=== PATIENT | female | born 1950 | race Caucasian/White ===

== ENCOUNTER → 2016-05-15 | Outpatient (CLI) | payer OTHER ==
[2016-02-11 02:12] VITALS: BP 143/89
[~2016-05-15] MED LIST: ALPR1TAB2 PO; ASPI81TA9 PO; ATOR10TA PO; CETI10TA16 PO; CIPR500T94 PO; CLIN-44 PO; CYCL10TA2 PO; DEXL30CA PO; DIAZ2TAB PO; DICL75TA PO; FURO40TA4 PO; HYDR-2666 PO; HYDR-971 PO; INSU100I13 SQ; INSU100V8 SQ; LOSA25TA4 PO; NITR0.4T SL; OXYC1TAB8 PO; OXYC1TAB9 PO; OXYC40TA21 PO; POTA20TA12 PO; PREG75CA PO; TIZA4TAB PO; TRIA5PAS4 DT; VENTOLIN HFA18 GM IH
--- NOTE | 2016-05-16 10:23 | RAD ---
DATE: 05/15/2016 EXAM: DIGITAL SCREEN BILAT W/CAD HISTORY: Routine screening COMPARISON: 05/16/2015 This study was interpreted with the benefit of Computerized Aided Detection (CAD). FINDINGS: There are scattered fibroglandular densities in the breasts. No new or enlarging breast densities are seen. Minimal benign type calcification is noted. No suspicious microcalcifications have developed. IMPRESSION: Stable mammograms without evidence of malignancy. BI-RADS CATEGORY: 2 BENIGN FINDING(S) RECOMMENDED FOLLOW-UP: 12M 12 MONTH FOLLOW-UP PQRS compliance statement: Patient information was entered into a reminder system with a target due date for the next mammogram. Mammography is a sensitive method for finding small breast cancers, but it does not detect them all and is not a substitute for careful clinical examination. A negative mammogram does not negate a clinically suspicious finding and should not result in delay in biopsying a clinically suspicious abnormality. "Our facility is accredited by the [employer] Mammography Program."
== END | disposition home or self-care (01) ==
LOC: MAMMO 14:40
PROVIDERS: ATTEND Family Medicine
DX: Z12.31 Encounter for screening mammogram for malignant neoplasm of breast (principal)
CPT/HCPCS: G0202; 77067

== ENCOUNTER → 2016-10-11 | Outpatient (CLI) | payer OTHER ==
[2016-02-11 02:12] VITALS: BP 143/89
[~2016-10-11] MED LIST changes: +ASPI-612 PO; -ASPI81TA9 PO; -CLIN-44 PO; +CLIN150C14 PO; -HYDR-2666 PO; +HYDR-2758 PO; -TRIA5PAS4 DT; +TRIA5PAS5 DT
--- NOTE | 2016-10-11 15:31 | RAD ---
Left elbow, 3 views, 10/11/2016: History: Elbow pain There is moderate spurring at the elbow joint. There are tiny periarticular calcifications. No fracture or dislocation is identified. There is no radiographic evidence of a significant joint effusion. IMPRESSION: 1. Degenerative change. 2. No acute bony abnormality is detected.
== END | disposition home or self-care (01) ==
LOC: RAD 13:50
PROVIDERS: ATTEND Family Medicine
DX: M19.022 Primary osteoarthritis, left elbow (principal)
CPT/HCPCS: 73080

== ENCOUNTER 2017-01-13 18:31 | Emergency (ER) | payer OTHER ==
[~2017-01-13] VITALS: Ht 154.9 cm; Wt 79.4 kg
[2017-01-13 18:55] VITALS: BP 127/60
[2017-01-13] MEDS ORDERED: DIAZ5TAB PO (19:34)
[2017-01-13] MEDS ORDERED: DICL50TA4 PO (19:34)
[2017-01-13] MEDS ORDERED: GABA-586 PO (19:34)
--- NOTE | 2017-01-13 19:34 | PHYS DOC ---
Past Medical History Past Medical History: Asthma, Diabetes-Type II, Diverticulitis, Fibromyalgia, High Cholesterol, Hypertension, [place], Other Additional Past Medical Histor: lower ext edema, chronic back pain Past Surgical History: Appendectomy, Knee Replacement, Tubal ligation Additional Past Surgical Histo: HERNIA, COLON RESECTION X 2; L knee Alcohol Use: Sober Drug Use: None Adult General Chief Complaint Chief Complaint: HAND PROBLEM HPI HPI Patient is a 66 year old female with history of hypertension, high cholesterol , fibromyalgia, who presents today complaining of 7 out of 10 throbbing left hand pain that has been going on since yesterday. Patient states she has history of carpal tunnel. She is also complaining of some numbness and tingling to the left fingers. Patient states she follows up with an orthopedic doctor for a couple trauma. Patient denies any injuries. She states she is currently trying to take cyclobenzaprine with no relief. Review of Systems Review of Systems Constitutional: Denies fever or chills [] Musculoskeletal: Left hand pain with numbness and tingling to the left fingers. Integument: Denies rash or skin lesions [] Neurologic: Denies headache, focal weakness or sensory changes [] Current Medications Current Medications Current Medications Medications (Trade) Dose Ordered Sig/Dee Start Time Stop Time Status Last Admin Dose Admin Diazepam (Valium) 5 mg 1X ONCE 01/13/17 19:45 01/13/17 19:46 01/13/17 19:27 5 MG Gabapentin (Neurontin) 300 mg 1X ONCE 01/13/17 19:45 01/13/17 19:46 01/13/17 19:27 300 MG Naproxen (Naprosyn) 500 mg 1X ONCE 01/13/17 19:45 01/13/17 19:46 01/13/17 19:27 500 MG Allergies Allergies Allergies Coded Allergies Type Severity Reaction Last Updated Verified Penicillins Allergy Intermediate Rash 11/18/13 Yes adhesive Allergy Intermediate RASH- TAPE 11/18/13 Yes doxycycline Allergy Intermediate rash 01/21/15 Yes Physical Exam Physical Exam Constitutional: Well developed, well nourished, no acute distress, non-toxic appearance. [] Skin: Warm, dry, no erythema, no rash. [] Back: No tenderness, no CVA tenderness. [] Extremities: Left hand with no obvious deformity. No tenderness of the left hand. Positive Tinel and Phalen sign. Full range of motion to the left hand and fingers. Adequate radial medial and was not sensation to the left hand. +2 left radial pulse. Cap refill less than 2 seconds the left upper extremity. Neurologic: Alert and oriented X 3, normal motor function, normal sensory function, no focal deficits noted. [] Psychologic: Affect normal, judgement normal, mood normal. [] Current Patient Data Vital Signs Vital Signs Date Time Temp Pulse Resp B/P (MAP) Pulse Ox O2 Delivery O2 Flow Rate FiO2 01/13/17 18:55 98.1 74 20 96 Room Air 98.1 EKG EKG [] Radiology/Procedures Radiology/Procedures [] Course & Med Decision Making Course & Med Decision Making Pertinent Labs and Imaging studies reviewed. (See chart for details) Patient is in the ED with pain consistent of chronic carpel tunnel syndrome. She was discharged with diclofenac, Valium and gabapentin. Follow-up with her orthopedic doctor in the course of this week. Dragon Disclaimer Dragon Disclaimer This electronic medical record was generated, in whole or in part, using a voice recognition dictation system. Departure Departure Impression: Primary Impression: Carpal tunnel syndrome of left wrist Disposition: HOME, SELF-CARE Condition: STABLE Referrals: NO PCP (PCP) Follow-up with your orthopedic doctor in the course of this week. Patient Instructions: Carpal Tunnel Syndrome, [id number] Additional Instructions: You were seen in the ED with pain consistent with carpal tunnel syndrome. Continue following up with the orthopedic doctor. Ice and elevate the extremity. Scripts Diclofenac Sodium (DICLOFENAC SODIUM) 50 Mg Tablet.dr 1 TAB PO BID, #20 TAB 0 Refills Prov: SHANA PINEDA APRN 01/13/17 Diazepam (VALIUM) 5 Mg Tablet 5 MG PO TID, #15 TAB Prov: SHANA PINEDA APRN 01/13/17 Gabapentin (GABAPENTIN) 300 Mg Capsule 300 MG PO TID, #30 CAP Prov: SHANA PINEDA APRN 01/13/17 SHANA PINEDA APRN Jan 13, 2017 19:34
[2017-01-13] MEDS ORDERED: diazePAM 5 MG TABLET PO ONE (19:45)
[2017-01-13] MEDS ORDERED: NAPROXEN 500 MG TABLET PO ONE (19:45)
[2017-01-13] MEDS ORDERED: GABAPENTIN 300 MG CAPSULE. PO ONE (19:45)
== END 2017-01-13 19:38 | disposition home or self-care (01) ==
LOC: ER 18:31
DX: G56.02 Carpal tunnel syndrome, left upper limb (principal); E78.00 Pure hypercholesterolemia, unspecified; E11.9 Type 2 diabetes mellitus without complications; G89.29 Other chronic pain; I10 Essential (primary) hypertension; J45.909 Unspecified asthma, uncomplicated; M79.7 Fibromyalgia; I25.2 Old myocardial infarction; Z88.0 Allergy status to penicillin; Z88.1 Allergy status to other antibiotic agents; Z88.8 Allergy status to other drugs, medicaments and biological substances
CPT/HCPCS: 99284

== ENCOUNTER → 2017-05-16 | Outpatient (CLI) | payer OTHER | END | disposition home or self-care (01) | LOC: MAMMO 14:37 | DX: Z12.31 Encounter for screening mammogram for malignant neoplasm of breast (principal) | CPT/HCPCS: 77067 ==

== ENCOUNTER 2018-02-22 23:02 | Emergency (ER) | payer MEDICARE, OTHER ==
[~2018-02-22] VITALS: Ht 152.4 cm; Wt 73.5 kg
[~2018-02-22 23:02] MED LIST changes: +DIAZ5TAB PO; +DICL50TA4 PO; +GABA-586 PO; -HYDR-2758 PO; +HYDR-2761 PO; +HYDR-3164 PO; -HYDR-971 PO; -LOSA25TA4 PO; +LOSA25TA5 PO; +OXYC-411 PO; -OXYC1TAB9 PO
[2018-02-23 00:36] LABS: BASO % 0 % (0-3); EOS # 0.1 x10^3/uL (0.0-0.7); EOS % 1 % (0-3); HEMATOCRIT 41.4 % (36.0-47.0); HEMOGLOBIN 14.1 g/dL (12.0-15.5); LYMPH # 3.5 x10^3/uL (1.0-4.8); LYMPH % 42 % (24-48); MEAN CORPUSCULAR HEMOGLOBIN 30 pg (25-35); MEAN CORPUSCULAR HGB CONC 34 g/dL (31-37); MEAN CORPUSCULAR VOLUME 87 fL (79-100); MONO # 0.7 x10^3/uL (0.0-1.1); MONO % 8 % (0-9); NEUT # 4.1 x10^3uL (1.8-7.7); NEUT % 49 % (31-73); PLATELET COUNT 267 x10^3/uL (140-400); RED BLOOD COUNT 4.76 x10^6/uL (3.50-5.40); RED CELL DISTRIBUTION WIDTH 14.5 % (11.5-14.5); WHITE BLOOD COUNT 8.3 x10^3/uL (4.0-11.0)
[2018-02-23 00:44] LABS: PROTHROMBIN TIME PATIENT 12.9 SEC (11.7-14.0)
[2018-02-23 00:49] LABS: CALCIUM 9.3 mg/dL (8.5-10.1); CREATININE 0.8 mg/dL (0.6-1.0); GFR 71.8; POTASSIUM 3.6 mmol/L (3.5-5.1)
[2018-02-23 00:57] LABS: TOTAL BILIRUBIN 0.4 mg/dL (0.2-1.0); TOTAL PROTEIN 7.9 g/dL (6.4-8.2)
[2018-02-23] MEDS ORDERED: ACETAMINOPHEN 500 MG TABLET PO ONE (01:00)
--- NOTE | 2018-02-23 01:06 | RAD ---
Right lower extremity venous duplex study 02/23/2018 Clinical History: Right leg pain. Lump posterior distal right thigh. Technique: Using a combination of real time ultrasound imaging and color-flow and pulse Doppler imaging techniques along with graded compression and augmentation, duplex evaluation of the deep venous system of the right lower extremity was performed. Multiple images were obtained. Findings: There is no sonographic evidence of deep venous thrombosis involving the visualized deep venous structures of right lower extremity. No abnormal soft tissue mass or fluid collection is seen in the area where the patient feels a palpable lump. A 3.4 cm popliteal cyst is seen posterior to the right knee. Impression: There is no sonographic evidence of deep venous thrombosis involving the visualized deep venous structures of the right lower extremity. Electronically signed by: Chicho Han MD (02/23/2018 1:03 AM) [facility]
--- NOTE | 2018-02-23 01:45 | PHYS DOC ---
Past Medical History Past Medical History: Asthma, Diabetes-Type II, Diverticulitis, Fibromyalgia, High Cholesterol, Hypertension, [place], Other Additional Past Medical Histor: lower ext edema, chronic back pain Past Surgical History: Appendectomy, Hysterectomy, Knee Replacement, Tonsillectomy, Tubal ligation Additional Past Surgical Histo: HERNIA, COLON RESECTION X 2; L knee Alcohol Use: Sober Drug Use: None Adult General Chief Complaint Chief Complaint: LOWER EXT PAIN HPI HPI Patient is a 67 year old f p/w right leg pain x one to two weeks. located in the right posterior popoliteal area. she had hysterectomy in august was on preventive lovenox at that time but no previous hx of dvt. she is worreid about dvt. does have chronic right knee pian as well. due for knee replacement once her hba1c gets better. Review of Systems Review of Systems Constitutional: Denies fever or chills [] Eyes: Denies change in visual acuity, redness, or eye pain [] HENT: Denies nasal congestion or sore throat [] Respiratory: Denies shortness of breath [] Cardiovascular: No additional information not addressed in HPI [] neg for cp Musculoskeletal:see hpi Neurologic: Denies headache, focal weakness or sensory changes [] Endocrine: Denies polyuria or polydipsia [] All other systems were reviewed and found to be within normal limits, except as documented in this note. Current Medications Current Medications Current Medications Medications (Trade) Dose Ordered Sig/Dee Start Time Stop Time Status Last Admin Dose Admin Acetaminophen (Tylenol) 1,000 mg 1X ONCE 02/23/18 01:00 02/23/18 01:01 DC 02/23/18 00:33 1,000 MG Allergies Allergies Allergies Coded Allergies Type Severity Reaction Last Updated Verified Penicillins Allergy Intermediate Rash 11/18/13 Yes adhesive Allergy Intermediate RASH- TAPE 11/18/13 Yes doxycycline Allergy Intermediate rash 01/21/15 Yes Physical Exam Physical Exam Constitutional: Well developed, well nourished, no acute distress, non-toxic appearance. [] HENT: Normocephalic, atraumatic, bilateral external ears normal, oropharynx moist, no oral exudates, nose normal. [] Eyes: PERRLA, EOMI, conjunctiva normal, no discharge. [] Neck: Normal range of motion, no tenderness, supple, no stridor. [] normal respiratory effort no increased work of breathing. Abdomen: Bowel sounds normal, soft, no tenderness, no masses, no pulsatile masses. [] Skin: Warm, dry, no erythema, no rash. [] Back: No tenderness, no CVA tenderness. [] Extremities: there is popliteal tenderness noted, mild cyst noted. no palpable cords no calf ttp. Neurologic: Alert and oriented X 3, normal motor function, normal sensory function, no focal deficits noted. [] Psychologic: Affect normal, judgement normal, mood normal. [] Current Patient Data Vital Signs Vital Signs Date Time Temp Pulse Resp B/P (MAP) Pulse Ox O2 Delivery O2 Flow Rate FiO2 02/22/18 23:10 97.9 63 18 149/67 (94) 94 Room Air 97.9 Lab Values Laboratory Tests Test 02/22/18 23:35 White Blood Count 8.3 x10^3/uL (4.0-11.0) Red Blood Count 4.76 x10^6/uL (3.50-5.40) Hemoglobin 14.1 g/dL (12.0-15.5) Hematocrit 41.4 % (36.0-47.0) Mean Corpuscular Volume 87 fL (79-100) Mean Corpuscular Hemoglobin 30 pg (25-35) Mean Corpuscular Hemoglobin Concent 34 g/dL (31-37) Red Cell Distribution Width 14.5 % (11.5-14.5) Platelet Count 267 x10^3/uL (140-400) Neutrophils (%) (Auto) 49 % (31-73) Lymphocytes (%) (Auto) 42 % (24-48) Monocytes (%) (Auto) 8 % (0-9) Eosinophils (%) (Auto) 1 % (0-3) Basophils (%) (Auto) 0 % (0-3) Neutrophils # (Auto) 4.1 x10^3uL (1.8-7.7) Lymphocytes # (Auto) 3.5 x10^3/uL (1.0-4.8) Monocytes # (Auto) 0.7 x10^3/uL (0.0-1.1) Eosinophils # (Auto) 0.1 x10^3/uL (0.0-0.7) Basophils # (Auto) 0.0 x10^3/uL (0.0-0.2) Prothrombin Time 12.9 SEC (11.7-14.0) Prothrombin Time INR 1.0 (0.8-1.1) Sodium Level 137 mmol/L (136-145) Potassium Level 3.6 mmol/L (3.5-5.1) Chloride Level 99 mmol/L (98-107) Carbon Dioxide Level 27 mmol/L (21-32) Anion Gap 11 (6-14) Blood Urea Nitrogen 8 mg/dL (7-20) Creatinine 0.8 mg/dL (0.6-1.0) Estimated GFR (Cockcroft-Gault) 71.8 BUN/Creatinine Ratio 10 (6-20) Glucose Level 289 mg/dL (70-99) H Calcium Level 9.3 mg/dL (8.5-10.1) Total Bilirubin 0.4 mg/dL (0.2-1.0) Aspartate Amino Transferase (AST) 18 U/L (15-37) Alanine Aminotransferase (ALT) 26 U/L (14-59) Alkaline Phosphatase 112 U/L (46-116) Total Protein 7.9 g/dL (6.4-8.2) Albumin 4.0 g/dL (3.4-5.0) Albumin/Globulin Ratio 1.0 (1.0-1.7) Laboratory Tests 02/22/18 23:35 Laboratory Tests 02/22/18 23:35 EKG EKG [] Radiology/Procedures Radiology/Procedures [] Impressions: Technique: Using a combination of real time ultrasound imaging and color-flow and pulse Doppler imaging techniques along with graded compression and augmentation, duplex evaluation of the deep venous system of the right lower extremity was performed. Multiple images were obtained. Findings: There is no sonographic evidence of deep venous thrombosis involving the visualized deep venous structures of right lower extremity. No abnormal soft tissue mass or fluid collection is seen in the area where the patient feels a palpable lump. A 3.4 cm popliteal cyst is seen posterior to the right knee. Impression: There is no sonographic evidence of deep venous thrombosis involving the visualized deep venous structures of the right lower extremity. Electronically signed by: Chicho Galloway MD (02/23/2018 1:03 AM) [facility] DICTATED and SIGNED BY: CHICHO GALLOWAY MD DATE: 02/23/18 0101a Course & Med Decision Making Course & Med Decision Making Pertinent Labs and Imaging studies reviewed. (See chart for details) []bp check in one week nsaids for popliteal cyst no evidence of dvt. f/u pmd Dragon Disclaimer Dragon Disclaimer This electronic medical record was generated, in whole or in part, using a voice recognition dictation system. Departure Departure Impression: Primary Impression: Elevated blood pressure reading Additional Impression: Popliteal cyst Disposition: HOME, SELF-CARE Condition: STABLE Patient Instructions: Osteoarthritis Additional Instructions: get bp checked in one week. Problem Qualifiers LESIA REICH MD Feb 23, 2018 01:45
[2018-02-23 01:46] VITALS: BP 133/60
== END 2018-02-23 01:54 | disposition home or self-care (01) ==
LOC: ER 23:02
DX: M71.21 Synovial cyst of popliteal space [Baker], right knee (principal); I10 Essential (primary) hypertension; J45.909 Unspecified asthma, uncomplicated; E11.9 Type 2 diabetes mellitus without complications; E78.00 Pure hypercholesterolemia, unspecified; I25.2 Old myocardial infarction; Z90.49 Acquired absence of other specified parts of digestive tract; Z90.89 Acquired absence of other organs; Z90.710 Acquired absence of both cervix and uterus; Z30.2 Encounter for sterilization; Z96.659 Presence of unspecified artificial knee joint; Z88.0 Allergy status to penicillin; Z88.8 Allergy status to other drugs, medicaments and biological substances
CPT/HCPCS: 36415; 80053; 85025; 85610; 93971; 99284-25

== ENCOUNTER → 2018-05-19 | Outpatient (CLI) | payer MEDICARE, OTHER ==
[~2018-05-19] MED LIST changes: -GABA-586 PO; +GABA300C18 PO; -LOSA25TA5 PO; +LOSA25TA54 PO
--- NOTE | 2018-05-19 15:41 | RAD ---
DATE: 05/19/2018 EXAM: MAMMO EBTSY SCREENING BILATERAL HISTORY: Routine screening COMPARISON: 05/16/2017 This study was interpreted with the benefit of Computerized Aided Detection (CAD). Breast Density: FATTY The breast parenchyma is primarily fatty replaced. Breast parenchyma level density A. FINDINGS: 2-D and 3-D tomosynthesis imaging was performed in CC and MLO projections. No new or enlarging breast densities are seen. No suspicious microcalcifications are evident. IMPRESSION: Stable mammograms without evidence of malignancy. BI-RADS CATEGORY: 1 NEGATIVE RECOMMENDED FOLLOW-UP: 12M 12 MONTH FOLLOW-UP PQRS compliance statement: Patient information was entered into a reminder system with a target due date for the next mammogram. Mammography is a sensitive method for finding small breast cancers, but it does not detect them all and is not a substitute for careful clinical examination. A negative mammogram does not negate a clinically suspicious finding and should not result in delay in biopsying a clinically suspicious abnormality. "Our facility is accredited by the [employer] Mammography Program."
== END | disposition home or self-care (01) ==
LOC: MAMMO 10:38
PROVIDERS: ATTEND Family Medicine
DX: Z12.31 Encounter for screening mammogram for malignant neoplasm of breast (principal); Z85.3 Personal history of malignant neoplasm of breast
CPT/HCPCS: 77063; 77067

== ENCOUNTER 2018-06-25 18:24 | Emergency (ER) | payer MEDICARE, OTHER ==
[~2018-06-25] VITALS: Ht 152.4 cm; Wt 75.3 kg
[2018-06-25 19:37] LABS: BILIRUBIN,URINE NEGATIVE (NEG); CLARITY,URINE CLEAR; COLOR,URINE YELLOW; NITRITE,URINE NEGATIVE (NEG); PROTEIN,URINE NEGATIVE (NEG-TRACE)
[2018-06-25 19:38] LABS: BASO # 0.1 x10^3/uL (0.0-0.2); BASO % 1 % (0-3); EOS # 0.3 x10^3/uL (0.0-0.7); EOS % 4 % (0-3); HEMATOCRIT 43.7 % (36.0-47.0); HEMOGLOBIN 14.7 g/dL (12.0-15.5); LYMPH # 2.4 x10^3/uL (1.0-4.8); LYMPH % 32 % (24-48); MEAN CORPUSCULAR HEMOGLOBIN 30 pg (25-35); MEAN CORPUSCULAR HGB CONC 34 g/dL (31-37); MEAN CORPUSCULAR VOLUME 89 fL (79-100); MONO # 0.6 x10^3/uL (0.0-1.1); MONO % 8 % (0-9); NEUT # 4.1 x10^3uL (1.8-7.7); NEUT % 55 % (31-73); PLATELET COUNT 276 x10^3/uL (140-400); RED BLOOD COUNT 4.91 x10^6/uL (3.50-5.40); RED CELL DISTRIBUTION WIDTH 13.7 % (11.5-14.5); WHITE BLOOD COUNT 7.4 x10^3/uL (4.0-11.0)
[2018-06-25 19:45] LABS: CALCIUM 9.5 mg/dL (8.5-10.1); CREATININE 0.8 mg/dL (0.6-1.0); GFR 71.5; POTASSIUM 3.9 mmol/L (3.5-5.1)
[2018-06-25 19:56] LABS: BACTERIA,URINE MODERATE /HPF (0-FEW); RBC,URINE 0 /HPF (0-2); SQUAMOUS EPITHELIAL CELL,UR FEW /LPF; WBC,URINE RARE /HPF (0-4)
[2018-06-25 19:57] LABS: YEAST,URINE PRESENT /HPF
[2018-06-25] MEDS ORDERED: IV NORMAL SALINE 1000ML BAG 1,000 ML IV ONE (20:00)
[2018-06-25] MEDS ORDERED: KETOROLAC 30 MG/ML VIAL. IV ONE (20:00)
[2018-06-25] MEDS ORDERED: METOCLOPRAMIDE HCL 10 MG/2 ML VIAL. IV ONE (20:00)
[2018-06-25 20:04] LABS: ALBUMIN 4.1 g/dL (3.4-5.0); ALBUMIN/GLOBULIN RATIO 1.1 (1.0-1.7); TOTAL BILIRUBIN 0.5 mg/dL (0.2-1.0); TOTAL PROTEIN 7.7 g/dL (6.4-8.2)
[2018-06-25 20:05] LABS: MAGNESIUM 2.1 mg/dL (1.8-2.4)
--- NOTE | 2018-06-25 20:30 | PHYS DOC ---
Past Medical History Past Medical History: Asthma, Diabetes-Type II, Diverticulitis, Fibromyalgia, High Cholesterol, Hypertension, [place], Other Additional Past Medical Histor: lower ext edema, chronic back pain Past Surgical History: Appendectomy, Hysterectomy, Knee Replacement, Tonsillectomy, Tubal ligation Additional Past Surgical Histo: HERNIA, COLON RESECTION X 2; L knee Alcohol Use: Sober Drug Use: None Adult General Chief Complaint Chief Complaint: ABDOMINAL PAIN HPI HPI Patient is a 68 year old female who presents with lower left abdominal pain of one week duration. The pain is sharp, intermittent and rated at a 7/10 with no radiation. She denies history of the same. Has tried Alleve with no relief. Laying on her back makes the pain worse. She has a history of hernia repair around the area of concern >10 years ago and believes her current pain is related to the mesh. Review of Systems Review of Systems Constitutional: Denies fever or chills. Eyes: Denies change in visual acuity, redness, or eye pain. HENT: Denies nasal congestion or sore throat. Respiratory: Denies cough or shortness of breath. Cardiovascular: Denies chest pain or palpitations. GI: Denies abdominal pain, nausea, vomiting, bloody stools or diarrhea. : Denies dysuria or hematuria. Integument: Denies rash or skin lesions. Neurologic: Denies headache, focal weakness or sensory changes. Complete systems were reviewed and found to be within normal limits, except as documented in this note. Current Medications Current Medications Current Medications Medications (Trade) Dose Ordered Sig/Dee Start Time Stop Time Status Last Admin Dose Admin Ketorolac Tromethamine (Toradol 30mg Vial) 15 mg 1X ONCE 06/25/18 20:00 06/25/18 20:01 DC 06/25/18 20:11 15 MG Metoclopramide HCl (Reglan Vial) 10 mg 1X ONCE 06/25/18 20:00 06/25/18 20:01 DC 06/25/18 20:11 10 MG Sodium Chloride 1,000 ml @ 1,000 mls/hr 1X ONCE 06/25/18 20:00 06/25/18 21:00 DC 06/25/18 20:10 1,000 MLS/HR Allergies Allergies Allergies Coded Allergies Type Severity Reaction Last Updated Verified Penicillins Allergy Intermediate Rash 11/18/13 Yes adhesive Allergy Intermediate RASH- TAPE 11/18/13 Yes doxycycline Allergy Intermediate rash 01/21/15 Yes Physical Exam Physical Exam Constitutional: Well developed, well nourished, no acute distress, non-toxic appearance. HENT: Normocephalic, atraumatic, bilateral external ears normal, oropharynx moist, no oral exudates, nose normal. Eyes: PERRL, EOMI, conjunctiva normal, no discharge. Neck: Normal range of motion, no tenderness, supple, no stridor. Cardiovascular: Heart rate regular rhythm, no murmur. Lungs & Thorax: Bilateral breath sounds clear to auscultation. Abdomen: Bowel sounds normal, soft, tenderness to palpitation of the LLQ, no masses, no pulsatile masses. Skin: Warm, dry, no erythema, no rash. Extremities: No tenderness, no cyanosis, no clubbing, ROM intact, no edema. Neurologic: Alert and oriented X 3, normal motor function, normal sensory function, no focal deficits noted. Psychologic: Affect normal, judgement normal, mood normal. Current Patient Data Vital Signs Vital Signs Date Time Temp Pulse Resp B/P (MAP) Pulse Ox O2 Delivery O2 Flow Rate FiO2 06/25/18 21:39 66 20 122/61 (81) 96 Room Air 06/25/18 19:05 98.3 98.3 Lab Values Laboratory Tests Test 06/25/18 19:18 06/25/18 19:24 Urine Collection Type Void Urine Color Yellow Urine Clarity Clear Urine pH 6.0 Urine Specific Frost >=1.030 Urine Protein Negative mg/dL (NEG-TRACE) Urine Glucose (UA) >=1000 mg/dL (NEG) Urine Ketones (Stick) Negative mg/dL (NEG) Urine Blood Negative (NEG) Urine Nitrite Negative (NEG) Urine Bilirubin Negative (NEG) Urine Urobilinogen Dipstick 1.0 mg/dL (0.2 mg/dL) Urine Leukocyte Esterase Negative (NEG) Urine RBC 0 /HPF (0-2) Urine WBC Rare /HPF (0-4) Urine Squamous Epithelial Cells Few /LPF Urine Bacteria Moderate /HPF (0-FEW) Urine Yeast Present /HPF White Blood Count 7.4 x10^3/uL (4.0-11.0) Red Blood Count 4.91 x10^6/uL (3.50-5.40) Hemoglobin 14.7 g/dL (12.0-15.5) Hematocrit 43.7 % (36.0-47.0) Mean Corpuscular Volume 89 fL (79-100) Mean Corpuscular Hemoglobin 30 pg (25-35) Mean Corpuscular Hemoglobin Concent 34 g/dL (31-37) Red Cell Distribution Width 13.7 % (11.5-14.5) Platelet Count 276 x10^3/uL (140-400) Neutrophils (%) (Auto) 55 % (31-73) Lymphocytes (%) (Auto) 32 % (24-48) Monocytes (%) (Auto) 8 % (0-9) Eosinophils (%) (Auto) 4 % (0-3) H Basophils (%) (Auto) 1 % (0-3) Neutrophils # (Auto) 4.1 x10^3uL (1.8-7.7) Lymphocytes # (Auto) 2.4 x10^3/uL (1.0-4.8) Monocytes # (Auto) 0.6 x10^3/uL (0.0-1.1) Eosinophils # (Auto) 0.3 x10^3/uL (0.0-0.7) Basophils # (Auto) 0.1 x10^3/uL (0.0-0.2) Prothrombin Time 12.0 SEC (11.7-14.0) Prothrombin Time INR 0.9 (0.8-1.1) PTT 31 SEC (24-38) Sodium Level 139 mmol/L (136-145) Potassium Level 3.9 mmol/L (3.5-5.1) Chloride Level 99 mmol/L (98-107) Carbon Dioxide Level 30 mmol/L (21-32) Anion Gap 10 (6-14) Blood Urea Nitrogen 11 mg/dL (7-20) Creatinine 0.8 mg/dL (0.6-1.0) Estimated GFR (Cockcroft-Gault) 71.5 BUN/Creatinine Ratio 14 (6-20) Glucose Level 497 mg/dL (70-99) H Lactic Acid Level 1.2 mmol/L (0.4-2.0) Calcium Level 9.5 mg/dL (8.5-10.1) Magnesium Level 2.1 mg/dL (1.8-2.4) Total Bilirubin 0.5 mg/dL (0.2-1.0) Aspartate Amino Transferase (AST) 17 U/L (15-37) Alanine Aminotransferase (ALT) 27 U/L (14-59) Alkaline Phosphatase 111 U/L (46-116) Total Protein 7.7 g/dL (6.4-8.2) Albumin 4.1 g/dL (3.4-5.0) Albumin/Globulin Ratio 1.1 (1.0-1.7) Lipase 64 U/L (73-393) L Laboratory Tests 06/25/18 19:24 Laboratory Tests 06/25/18 19:24 EKG EKG [] Radiology/Procedures Radiology/Procedures [] Course & Med Decision Making Course & Med Decision Making Pertinent Labs and Imaging studies reviewed. (See chart for details) This is a 68-year-old female s/p hernia repair >10 years ago who presented this evening with LLQ abdominal pain. Her pain started earlier this week and has become progressively worse - now sharp and 7/10 without radiation. She believes her pain is due to the mesh from her prior hernia repair. CT was Dragon Disclaimer Dragon Disclaimer This electronic medical record was generated, in whole or in part, using a voice recognition dictation system. Departure Departure Impression: Primary Impression: Abdominal pain Additional Impression: Constipation Disposition: 01 HOME, SELF-CARE Condition: STABLE Referrals: TED SHELLEY MD (PCP) Patient Instructions: Abdominal Pain (Nonspecific), Constipation, Adult, Easy- to-Read Additional Instructions: Continue you home medications for pain and constipation. Problem Qualifiers Primary Impression: Abdominal pain Abdominal location: left lower quadrant Qualified Codes: R10.32 - Left lower quadrant pain Additional Impression: Constipation Constipation type: unspecified constipation type Qualified Codes: K59.00 - Constipation, unspecified MANDY NGUYỄN DO Jun 25, 2018 20:30
--- NOTE | 2018-06-25 20:43 | RAD ---
EXAM: CT Abdomen and Pelvis without IV contrast CLINICAL HISTORY: LLQ and left flank pain COMPARISON: CT abdomen and pelvis 05/25/2013 TECHNIQUE: Helical CT of the abdomen and pelvis without intravenous contrast. Axial, coronal and sagittal reformatted images were generated. PQRS compliance statement - One or more of the following individualized dose reduction techniques were utilized for this study: 1. Automated exposure control 2. Adjustment of the mA and/or kV according to patient size 3. Use of iterative reconstruction technique FINDINGS: Lack of intravenous contrast limits evaluation of solid organs, vasculature, and lymph nodes. Lower chest: Linear opacities in the lingula, right lower lobe and middle lobe likely scarring/atelectasis. Right lower lobe calcified granuloma. Mediastinal calcified lymph nodes are seen. Abdomen and Pelvis: No focal liver lesion. Calcified granuloma are seen within the spleen. Adrenal glands are normal. Gallbladder is normal. No biliary ductal dilatation. Pancreas is unremarkable. No focal renal lesion. No hydronephrosis. No hydroureter. No renal tract calculus. Bladder is unremarkable. Moderate colonic stool content is seen. No small or large bowel dilatation. A few colonic diverticula are seen. No evidence for acute diverticulitis. Subcutaneous fat infiltration overlying the anterior abdominal wall, possibly contusion. No abdominal pelvic ascites. No abdominal or pelvic lymphadenopathy. Bones: Degenerative changes of the spine are seen. Decreased bone mineral density. Symphysis pubis degenerative changes are also seen. Grade 1 anterolisthesis of L5 on S1. Hip joint degenerative changes are also seen. IMPRESSION: 1. No evidence of bowel obstruction. 2. Moderate colonic stool content is seen. 3. Subcutaneous soft tissue infiltration within the anterior abdomen, possibly contusion. 4. A few colonic diverticula are seen. No evidence for acute diverticulitis. Electronically signed by: Myles Garza MD (06/25/2018 8:40 PM) [facility]
[2018-06-25 22:39] VITALS: BP 140/65
== END 2018-06-25 22:51 | disposition home or self-care (01) ==
LOC: ER 18:24
DX: K59.00 Constipation, unspecified (principal); J45.909 Unspecified asthma, uncomplicated; I10 Essential (primary) hypertension; E11.9 Type 2 diabetes mellitus without complications; E78.00 Pure hypercholesterolemia, unspecified; I25.2 Old myocardial infarction; G89.29 Other chronic pain; Z90.89 Acquired absence of other organs; Z90.710 Acquired absence of both cervix and uterus; Z98.890 Other specified postprocedural states; Z98.51 Tubal ligation status; Z88.1 Allergy status to other antibiotic agents; Z88.0 Allergy status to penicillin; Z88.8 Allergy status to other drugs, medicaments and biological substances
CPT/HCPCS: 36415; 74176; 80053; 81001; 83605; 83690; 83735; 85025; 85610; 85730; 87086; 96374; 96375; 99284; J1885; J2765; J7030

== ENCOUNTER 2018-06-27 11:47 | Emergency (ER) | payer MEDICARE, OTHER ==
[~2018-06-27] VITALS: Ht 152.4 cm; Wt 75.3 kg
[2018-06-27] MEDS ORDERED: PROCHLORPERAZINE 10 MG/2 ML VIAL. IV ONE (12:45)
[2018-06-27] MEDS ORDERED: KETOROLAC 30 MG/ML VIAL. IV ONE (12:45)
[2018-06-27 12:53] LABS: BASO # 0.1 x10^3/uL (0.0-0.2); BASO % 1 % (0-3); EOS # 0.1 x10^3/uL (0.0-0.7); EOS % 0 % (0-3); HEMATOCRIT 44.2 % (36.0-47.0); HEMOGLOBIN 14.5 g/dL (12.0-15.5); LYMPH # 1.4 x10^3/uL (1.0-4.8); LYMPH % 11 % (24-48); MEAN CORPUSCULAR HEMOGLOBIN 29 pg (25-35); MEAN CORPUSCULAR HGB CONC 33 g/dL (31-37); MEAN CORPUSCULAR VOLUME 88 fL (79-100); MONO # 0.8 x10^3/uL (0.0-1.1); MONO % 6 % (0-9); NEUT # 9.8 x10^3uL (1.8-7.7); NEUT % 81 % (31-73); PLATELET COUNT 260 x10^3/uL (140-400); RED BLOOD COUNT 5.04 x10^6/uL (3.50-5.40); RED CELL DISTRIBUTION WIDTH 13.5 % (11.5-14.5)
[2018-06-27 13:00] LABS: CALCIUM 8.9 mg/dL (8.5-10.1); CREATININE 0.7 mg/dL (0.6-1.0); GFR 83.5; POTASSIUM 3.4 mmol/L (3.5-5.1)
[2018-06-27 13:06] LABS: ALBUMIN 3.8 g/dL (3.4-5.0); ALBUMIN/GLOBULIN RATIO 0.9 (1.0-1.7); TOTAL BILIRUBIN 0.8 mg/dL (0.2-1.0); TOTAL PROTEIN 7.9 g/dL (6.4-8.2)
--- NOTE | 2018-06-27 13:34 | RAD ---
ABDOMEN SUPINE UPRIGHT Clinical Indication: LLQ PAIN, NAUSEA Comparison: CT abdomen and pelvis without contrast, 2 days ago. Findings: No obvious opacity in the lung bases. No obvious pneumoperitoneum. Calcified granulomas in the spleen. No obvious organomegaly. There is a small amount of bowel gas, decreasing sensitivity. No dilated small bowel is seen. Moderate colonic stool volume is similar. There are multiple phleboliths in the pelvis. Osteitis pubis. Degenerative spondylosis of L4/L5. Degenerative arthropathy of the hips. IMPRESSION: Nonobstructive bowel gas pattern. Electronically signed by: Momo Rossi MD (06/27/2018 1:31 PM) [id number]
[2018-06-27 13:43] LABS: BILIRUBIN,URINE NEGATIVE (NEG); CLARITY,URINE CLEAR; COLOR,URINE YELLOW; NITRITE,URINE NEGATIVE (NEG); PH,URINE 5.5; PROTEIN,URINE NEGATIVE (NEG-TRACE)
[2018-06-27 14:04] LABS: BACTERIA,URINE MODERATE /HPF (0-FEW); RBC,URINE RARE /HPF (0-2); SQUAMOUS EPITHELIAL CELL,UR OCC /LPF; WBC,URINE OCC /HPF (0-4)
[2018-06-27] MEDS ORDERED: MAGNESIUM CITRATE 296 ML SOLUTION. PO ONE (14:45)
[2018-06-27] MEDS ORDERED: POLY17PO29 PO (15:24)
--- NOTE | 2018-06-27 15:24 | PHYS DOC ---
Past Medical History Past Medical History: Asthma, Diabetes-Type II, Diverticulitis, Fibromyalgia, High Cholesterol, Hypertension, [place], Other Additional Past Medical Histor: lower ext edema, chronic back pain Past Surgical History: Appendectomy, Hysterectomy, Knee Replacement, Tonsillectomy, Tubal ligation Additional Past Surgical Histo: HERNIA, COLON RESECTION X 2; L knee Alcohol Use: Sober Drug Use: None Adult General Chief Complaint Chief Complaint: ABDOMINAL PAIN HPI HPI Patient is a 68 year old female with history of diabetes type 2, hypertension, NM, high cholesterol, who presents to the ED today complaining of 8 out of 10 left lower quadrant abdominal pain that has been going on for almost a week. Patient states she was seen in the ED 2 days ago and was diagnosed with constipation, she states she took 1 stool softener and had a bowel movement today. She states she has continued to have the pain. Denies anything specifically exacerbating or relieving the pain. Denies any diarrhea. Review of Systems Review of Systems Constitutional: Denies fever or chills [] Eyes: Denies change in visual acuity, redness, or eye pain [] HENT: Denies nasal congestion or sore throat [] Respiratory: Denies cough or shortness of breath [] Cardiovascular: No additional information not addressed in HPI [] GI: Reports left lower quadrant abdominal pain, constipation, nausea and vomiting, denies bloody stools or diarrhea [] : Denies dysuria or hematuria [] Musculoskeletal: Denies back pain or joint pain [] Integument: Denies rash or skin lesions [] Neurologic: Denies headache, focal weakness or sensory changes [] All other systems were reviewed and found to be within normal limits, except as documented in this note. Current Medications Current Medications Current Medications Medications (Trade) Dose Ordered Sig/[facility] Start Time Stop Time Status Last Admin Dose Admin Ketorolac Tromethamine (Toradol 30mg Vial) 30 mg 1X ONCE 06/27/18 12:45 06/27/18 12:47 DC 06/27/18 12:55 30 MG Magnesium Citrate (Citroma) 296 ml 1X ONCE 06/27/18 14:45 06/27/18 14:46 DC Prochlorperazine Edisylate (Compazine) 10 mg 1X ONCE 06/27/18 12:45 06/27/18 12:47 DC 06/27/18 12:54 10 MG Allergies Allergies Allergies Coded Allergies Type Severity Reaction Last Updated Verified Penicillins Allergy Intermediate Rash 11/18/13 Yes adhesive Allergy Intermediate RASH- TAPE 11/18/13 Yes doxycycline Allergy Intermediate rash 01/21/15 Yes Physical Exam Physical Exam Constitutional: Well developed, well nourished, no acute distress, non-toxic appearance. [] HENT: Normocephalic, atraumatic, bilateral external ears normal, oropharynx moist, no oral exudates, nose normal. [] Eyes: PERRLA, EOMI, conjunctiva normal, no discharge. [] Neck: Normal range of motion, no tenderness, supple, no stridor. [] Cardiovascular:Heart rate regular rhythm, no murmur [] Lungs & Thorax: Bilateral breath sounds clear to auscultation [] Abdomen: Healed surgical incision noted midline abdomen. Bowel sounds normal, soft, mild tenderness the left lower quadrant, no right upper quadrant or right lower quadrant tenderness, no masses, no pulsatile masses. [] Rectal exam no external lesions noted on the exterior rectum, no internal hemorrhoids palpable. No mass is on the lower rectum region. Stool noted on the glove. Stool is loose. Skin: Warm, dry, no erythema, no rash. [] Back: No tenderness, no CVA tenderness. [] Extremities: No tenderness, no cyanosis, no clubbing, ROM intact, no edema. [] Neurologic: Alert and oriented X 3, normal motor function, normal sensory function, no focal deficits noted. [] Psychologic: Affect normal, judgement normal, mood normal. [] Current Patient Data Vital Signs Vital Signs Date Time Temp Pulse Resp B/P (MAP) Pulse Ox O2 Delivery O2 Flow Rate FiO2 06/27/18 13:00 86 20 121/56 (77) 93 Room Air 06/27/18 12:44 98.4 98.4 Lab Values Laboratory Tests Test 06/27/18 12:44 06/27/18 13:35 White Blood Count 12.0 x10^3/uL (4.0-11.0) H Red Blood Count 5.04 x10^6/uL (3.50-5.40) Hemoglobin 14.5 g/dL (12.0-15.5) Hematocrit 44.2 % (36.0-47.0) Mean Corpuscular Volume 88 fL (79-100) Mean Corpuscular Hemoglobin 29 pg (25-35) Mean Corpuscular Hemoglobin Concent 33 g/dL (31-37) Red Cell Distribution Width 13.5 % (11.5-14.5) Platelet Count 260 x10^3/uL (140-400) Neutrophils (%) (Auto) 81 % (31-73) H Lymphocytes (%) (Auto) 11 % (24-48) L Monocytes (%) (Auto) 6 % (0-9) Eosinophils (%) (Auto) 0 % (0-3) Basophils (%) (Auto) 1 % (0-3) Neutrophils # (Auto) 9.8 x10^3uL (1.8-7.7) H Lymphocytes # (Auto) 1.4 x10^3/uL (1.0-4.8) Monocytes # (Auto) 0.8 x10^3/uL (0.0-1.1) Eosinophils # (Auto) 0.1 x10^3/uL (0.0-0.7) Basophils # (Auto) 0.1 x10^3/uL (0.0-0.2) Sodium Level 138 mmol/L (136-145) Potassium Level 3.4 mmol/L (3.5-5.1) L Chloride Level 98 mmol/L (98-107) Carbon Dioxide Level 29 mmol/L (21-32) Anion Gap 11 (6-14) Blood Urea Nitrogen 9 mg/dL (7-20) Creatinine 0.7 mg/dL (0.6-1.0) Estimated GFR (Cockcroft-Gault) 83.5 BUN/Creatinine Ratio 13 (6-20) Glucose Level 291 mg/dL (70-99) H Calcium Level 8.9 mg/dL (8.5-10.1) Total Bilirubin 0.8 mg/dL (0.2-1.0) Aspartate Amino Transferase (AST) 18 U/L (15-37) Alanine Aminotransferase (ALT) 22 U/L (14-59) Alkaline Phosphatase 89 U/L (46-116) Total Protein 7.9 g/dL (6.4-8.2) Albumin 3.8 g/dL (3.4-5.0) Albumin/Globulin Ratio 0.9 (1.0-1.7) L Lipase 41 U/L (73-393) L Urine Color Yellow Urine Clarity Clear Urine pH 5.5 Urine Specific [place] 1.025 Urine Protein Negative mg/dL (NEG-TRACE) Urine Glucose (UA) >=1000 mg/dL (NEG) Urine Ketones (Stick) >=80 mg/dL (NEG) Urine Blood Negative (NEG) Urine Nitrite Negative (NEG) Urine Bilirubin Negative (NEG) Urine Urobilinogen Dipstick 1.0 mg/dL (0.2 mg/dL) Urine Leukocyte Esterase Negative (NEG) Urine RBC Rare /HPF (0-2) Urine WBC Occ /HPF (0-4) Urine Squamous Epithelial Cells Occ /LPF Urine Bacteria Moderate /HPF (0-FEW) Urine Mucus Slight /LPF Laboratory Tests 06/27/18 12:44 Laboratory Tests 06/27/18 12:44 EKG EKG [] Radiology/Procedures Radiology/Procedures []PROCEDURE: ABDOMEN SUPINE & UPRIGHT ABDOMEN SUPINE UPRIGHT Clinical Indication: LLQ PAIN, NAUSEA Comparison: CT abdomen and pelvis without contrast, 2 days ago. Findings: No obvious opacity in the lung bases. No obvious pneumoperitoneum. Calcified granulomas in the spleen. No obvious organomegaly. There is a small amount of bowel gas, decreasing sensitivity. No dilated small bowel is seen. Moderate colonic stool volume is similar. There are multiple phleboliths in the pelvis. Osteitis pubis. Degenerative spondylosis of L4/L5. Degenerative arthropathy of the hips. IMPRESSION: Nonobstructive bowel gas pattern. Electronically signed by: Momo Tipton MD (06/27/2018 1:31 PM) [id number] DICTATED and SIGNED BY: MOMO TIPTON MD DATE: 06/27/18 1331 Course & Med Decision Making Course & Med Decision Making Pertinent Labs and Imaging studies reviewed. (See chart for details) This is a 68-year-old female patient presenting to the ED with constipation. Last bowel movement was today, patient was seen in the ED 2 days ago and was diagnosed with constipation. She is only tried 1 stool softener and had one stool today. X-ray of the abdomen was noted for constipation. Labs are negative for any acute findings. Talked to patient at length about constipation. Informed patient she cannot take any narcotics for her pain. Recommended mil of molasses enema in the ED. Patient refused stating she does not want to have accidents on the way to home. Offered her mag citrate. She was hesitant about drinking it in fear of BM on the way to home. Encouraged her to drink mag citrate every day until she has a big bowel movement. Also encouraged to take MiraLAX daily. Encouraged patient to increase dietary fiber intake as well as water intake. Encouraged her to try and exercise. Follow-up with her own PCP in one week. Raheem Disclaimer Dragon Disclaimer This electronic medical record was generated, in whole or in part, using a voice recognition dictation system. Departure Departure Impression: Primary Impression: Constipation Disposition: HOME, SELF-CARE Condition: STABLE Referrals: TED SHELLEY MD (PCP) follow up next week Patient Instructions: Constipation, Adult Additional Instructions: You were evaluated in the ER and noted to be constipated. Please increase your dietary fiber intake as well as water intake. Consider taking MiraLAX every day. Take magnesium citrate daily until you have a good normal bowel movement. Please follow-up with your doctor next week. Scripts Ondansetron (ONDANSETRON ODT) 4 Mg Tab.rapdis 1 TAB PO PRN Q6-8HRS, #16 TAB Prov: SHANA PINEDA APRN 06/27/18 Polyethylene Glycol 3350 (MIRALAX) 17 Gm Powd.pack 1 PACKET PO DAILY, #30 PACKET 3 Refills Prov: SHANA PINEDA APRN 06/27/18 Problem Qualifiers Primary Impression: Constipation Constipation type: unspecified constipation type Qualified Codes: K59.00 - Constipation, unspecified SHANA PINEDA APRN Jun 27, 2018 15:24
[2018-06-27] MEDS ORDERED: ONDA4TAB12 PO (15:27)
[2018-06-27 15:30] VITALS: BP 119/59
== END 2018-06-27 15:53 | disposition home or self-care (01) ==
LOC: ER 11:47
DX: K59.00 Constipation, unspecified (principal); J45.909 Unspecified asthma, uncomplicated; R11.12 Projectile vomiting; E78.00 Pure hypercholesterolemia, unspecified; E11.9 Type 2 diabetes mellitus without complications; I10 Essential (primary) hypertension; G89.29 Other chronic pain; Z90.89 Acquired absence of other organs; Z90.710 Acquired absence of both cervix and uterus; Z98.51 Tubal ligation status; Z98.890 Other specified postprocedural states; Z88.0 Allergy status to penicillin; Z88.1 Allergy status to other antibiotic agents; Z88.8 Allergy status to other drugs, medicaments and biological substances
CPT/HCPCS: 36415; 74021; 80053; 81001; 83690; 85025; 87086; 96374; 96375; 99284; J0780; J1885

== ENCOUNTER → 2018-12-15 | Outpatient (CLI) | payer MEDICARE, OTHER ==
[~2018-12-15] MED LIST changes: +ONDA4TAB12 PO; +POLY17PO29 PO; -TIZA4TAB PO; +TIZA4TAB2 PO
--- NOTE | 2018-12-15 08:25 | RAD ---
Examination: Ultrasound abdomen limited HISTORY: History of abdominal pain, nausea COMPARISON: None available. FINDINGS: The echogenicity liver grossly appears unremarkable. No evidence of gallstones. The right kidney measures 10.4 x 4.8 x 4.3 cm. The left kidney measures 10.3 x 4.5 x 5.1 cm. The pancreas grossly appears unremarkable. The visualized spleen appears unremarkable. The visualized aorta, IVC within normal limits of dimension. IMPRESSION: Unremarkable exam. Electronically signed by: Rosendo Lester MD (12/15/2018 8:22 AM) [place] [id number]
== END | disposition home or self-care (01) ==
LOC: US 15:00
PROVIDERS: ATTEND Family Medicine
DX: R11.0 Nausea (principal); R10.9 Unspecified abdominal pain
CPT/HCPCS: 76700

== ENCOUNTER 2019-03-10 17:30 | Emergency (ER) | payer MEDICARE, OTHER ==
[~2019-03-10] VITALS: Ht 154.9 cm; Wt 75.3 kg
[~2019-03-10 17:30] MED LIST changes: -NITR0.4T SL; +NITR0.4T24 SL
[2019-03-10 18:08] VITALS: BP 164/71
[2019-03-10] MEDS ORDERED: HYDROcodone/APAP 5/325MG 1 TAB TABLET PO ONE (18:45)
--- NOTE | 2019-03-10 20:59 | RAD ---
STUDY: 1. CT head without contrast 2. CT maxillofacial without contrast 3. CT cervical spine without contrast INDICATION: Fall. COMPARISON: None recent. TECHNIQUE: Axial CT imaging of the head, maxillofacial structures and cervical spine performed without the use of intravenous contrast. Sagittal and coronal reformats were obtained. One or more of the following individualized dose reduction techniques were utilized for this examination: 1. Automated exposure control 2. Adjustment of the mA and/or kV according to patient size 3. Use of iterative reconstruction technique. FINDINGS: CT HEAD: No acute intracranial hemorrhage. No mass effect, midline shift or hydrocephalus. Ponce-white matter differentiation is maintained. Carotid siphon atherosclerotic calcifications. Hematoma along the medial aspect of the left orbit. No depressed calvarial fracture. CT MAXILLOFACIAL: Hematoma along the medial aspect of the left orbit. No associated facial fracture. No findings to suggest injury to the globes. No retrobulbar hematoma. Symmetric extraocular muscles. No layering fluid within the paranasal sinuses. The right maxillary sinus retention cyst. Several missing teeth and scattered dental caries. CT CERVICAL SPINE: No acute fracture is identified. No traumatic malalignment. Focus of mineralization lateralized to the right aspect of the canal just below the foramen magnum, image 18 series 11, does not appear traumatic and there is a normal interval between the dens and the C1 lateral masses and no malalignment at the craniocervical articulation. Dystrophic mineralization seen dorsal to the dens as well. Severe multifactorial cervical spondylosis with probable moderate central canal narrowing at multiple levels as well as scattered levels with severe bony neural foraminal encroachment. No prevertebral hematoma to suggest an occult osseous injury. Small right thyroid lobe nodule not meeting size criteria for follow-up. Surgical clips along inferior to the thyroid. No apical pneumothorax or suspicious nodule. IMPRESSION: CT HEAD: 1. No acute intracranial abnormality. CT MAXILLOFACIAL: 1. Hematoma along the medial aspect of the left orbit without an associated fracture. 2. Chronic findings as discussed above. CT CERVICAL SPINE: 1. No acute fracture or traumatic malalignment. 2. Advanced multifactorial degenerative changes with varying degrees of central canal and neural foraminal stenosis. Electronically signed by: WEI TERESA MD (03/10/2019 8:56 PM) [facility]
[2019-03-10] MEDS ORDERED: HYDR-3164 PO (21:15)
--- NOTE | 2019-03-10 21:15 | PHYS DOC ---
Past Medical History Past Medical History: Asthma, Diabetes-Type II, Diverticulitis, Fibromyalgia, High Cholesterol, Hypertension, [place], Other Additional Past Medical Histor: lower ext edema, chronic back pain Past Surgical History: Appendectomy, Hysterectomy, Knee Replacement, Tonsillectomy, Tubal ligation Additional Past Surgical Histo: HERNIA, COLON RESECTION X 2; L knee Alcohol Use: Sober Drug Use: None Adult General Chief Complaint Chief Complaint: MECHANICAL FALL HPI HPI Patient is a 68 year old female who presents with patient was out in the grocery store parking lot in her electric wheelchair at 1630 when she hit a bump and fell of the electric wheelchair. Patient hit her face or head. Patient has abrasion to the bridge of her nose and her left forehead. Patient's last tetanus was 2 years ago. She is not on blood thinners. Review of Systems Review of Systems HENT: Denies nasal congestion or sore throat. Facial pain. [] Musculoskeletal: Bilateral dorsal hand pain. Denies back pain or joint pain [] Integument: Abrasion to face. Denies rash or skin lesions [] Neurologic: headache, denies focal weakness or sensory changes [] All other systems were reviewed and found to be within normal limits, except as documented in this note. Current Medications Current Medications Current Medications Medications (Trade) Dose Ordered Sig/Dee Start Time Stop Time Status Last Admin Dose Admin Acetaminophen/ Hydrocodone Bitart (Lortab 5/325) 1 tab 1X ONCE 03/10/19 18:45 03/10/19 18:46 DC 03/10/19 18:48 1 TAB Allergies Allergies Allergies Coded Allergies Type Severity Reaction Last Updated Verified Penicillins Allergy Intermediate Rash 11/18/13 Yes adhesive Allergy Intermediate RASH- TAPE 11/18/13 Yes doxycycline Allergy Intermediate rash 01/21/15 Yes Physical Exam Physical Exam Constitutional: Well developed, well nourished, no acute distress, non-toxic appearance. [] HENT: Normocephalic, atraumatic, bilateral external ears normal, oropharynx moist, no oral exudates, nose normal. [] Eyes: PERRLA, EOMI, conjunctiva normal, no discharge. [] Neck: Normal range of motion, no tenderness, supple, no stridor. [] Cardiovascular:Heart rate regular rhythm, no murmur [] Lungs & Thorax: Bilateral breath sounds clear to auscultation [] Abdomen: Bowel sounds normal, soft, no tenderness, no masses, no pulsatile masses. [] Skin: Right dorsal hand bruising. Abrasion to nasal bone and left forehead. Warm, dry, no erythema, no rash. [] Back: No tenderness, no CVA tenderness. [] Extremities: No tenderness, no cyanosis, no clubbing, ROM intact, no edema. [] Neurologic: Alert and oriented X 3, normal motor function, normal sensory function, no focal deficits noted. [] Psychologic: Affect normal, judgement normal, mood normal. [] Current Patient Data Vital Signs Vital Signs Date Time Temp Pulse Resp B/P (MAP) Pulse Ox O2 Delivery O2 Flow Rate FiO2 03/10/19 18:48 18 96 Room Air 03/10/19 18:08 98.2 68 164/71 (102) 98.2 EKG EKG [] Radiology/Procedures Radiology/Procedures [] Impressions: [facility] [address] [place] [address] IMAGING REPORT Signed PATIENT: JODY BAIRD ACCOUNT: [id number] : 1950 LOCATION: ER AGE: 68 SEX: F EXAM STATUS: REG ER ORD. PHYSICIAN: PATITO PIERCE APRN REASON: FELL OUT OF MOTORIZED WHEELCHAIR PROCEDURE: CT MAXILLOFACIAL WO CONTRAST STUDY: 1. CT head without contrast 2. CT maxillofacial without contrast 3. CT cervical spine without contrast INDICATION: Fall. COMPARISON: None recent. TECHNIQUE: Axial CT imaging of the head, maxillofacial structures and cervical spine performed without the use of intravenous contrast. Sagittal and coronal reformats were obtained. One or more of the following individualized dose reduction techniques were utilized for this examination: 1. Automated exposure control 2. Adjustment of the mA and/or kV according to patient size 3. Use of iterative reconstruction technique. FINDINGS: CT HEAD: No acute intracranial hemorrhage. No mass effect, midline shift or hydrocephalus. Ponce-white matter differentiation is maintained. Carotid siphon atherosclerotic calcifications. Hematoma along the medial aspect of the left orbit. No depressed calvarial fracture. CT MAXILLOFACIAL: Hematoma along the medial aspect of the left orbit. No associated facial fracture. No findings to suggest injury to the globes. No retrobulbar hematoma. Symmetric extraocular muscles. No layering fluid within the paranasal sinuses. The right maxillary sinus retention cyst. Several missing teeth and scattered dental caries. CT CERVICAL SPINE: No acute fracture is identified. No traumatic malalignment. Focus of mineralization lateralized to the right aspect of the canal just below the foramen magnum, image 18 series 11, does not appear traumatic and there is a normal interval between the dens and the C1 lateral masses and no malalignment at the craniocervical articulation. Dystrophic mineralization seen dorsal to the dens as well. Severe multifactorial cervical spondylosis with probable moderate central canal narrowing at multiple levels as well as scattered levels with severe bony neural foraminal encroachment. No prevertebral hematoma to suggest an occult osseous injury. Small right thyroid lobe nodule not meeting size criteria for follow-up. Surgical clips along inferior to the thyroid. No apical pneumothorax or suspicious nodule. IMPRESSION: CT HEAD: 1. No acute intracranial abnormality. CT MAXILLOFACIAL: 1. Hematoma along the medial aspect of the left orbit without an associated fracture. 2. Chronic findings as discussed above. CT CERVICAL SPINE: 1. No acute fracture or traumatic malalignment. 2. Advanced multifactorial degenerative changes with varying degrees of central canal and neural foraminal stenosis. Electronically signed by: WEI TERESA MD (03/10/2019 8:56 PM) [facility] DICTATED and SIGNED BY: WEI TERESA MD DATE: 03/10/192055 Course & Med Decision Making Course & Med Decision Making Denies LOC, nausea, vomiting, dizziness, visual changes, numbness or tingling, abdominal pain, neck pain, back pain. Patient has bilateral dorsal hand pain on ulnar side. Can wiggle fingers but states it is painful. Radial pulses strong and present. Cap refill less than 3 seconds. Speaks in full complete sentences. Alert and oriented. Skin pink warm and dry. PERRLA. Lungs are clear to auscultation in all lobes. Patient has right hand dorsal 1+ swelling with bruising. She has tenderness to her left face at the forehead and maxillary areas. There is no basilar skull fracture signs. Abdomen soft and nontender. No bruising to her neck or back. Full range of motion of her neck. Hand x-ray read by Dr Mattson and there is a area of question but likely a contusion. Right hand is placed in a Ulnar Gutter Splint and to follow up with Orthopedics. Dragon Disclaimer Dragon Disclaimer This electronic medical record was generated, in whole or in part, using a voice recognition dictation system. Departure Departure Impression: Primary Impression: Fall Additional Impressions: Abrasion Contusion Disposition: HOME, SELF-CARE Condition: STABLE Referrals: TED SHELLEY MD (PCP) SANTOSH MATIAS II, MD Patient Instructions: Contusion, Fall Prevention and Home Safety, [id number] Additional Instructions: Follow up with primary care provider. Take your medication for pain and use ice or a heating pad. Scripts Hydrocodone/Apap 5-325 (NORCO 5-325 TABLET) 1 Each Tablet 1 TAB PO PRN Q6HRS PRN for PAIN, #8 TAB 0 Refills Prov: PATITO PIERCE FOOD ORDER EXPEDITER 03/10/19 Problem Qualifiers Primary Impression: Fall Encounter type: initial encounter Qualified Codes: W19.XXXA - Unspecified fall, initial encounter Additional Impressions: Contusion Encounter type: initial encounter Contusion area: hand Laterality: left Qualified Codes: S60.222A - Contusion of left hand, initial encounter PATITO PIERCE FOOD ORDER EXPEDITER Mar 10, 2019 21:15
--- NOTE | 2019-03-11 00:55 | RAD ---
Examination: 3 views of the right hand HISTORY: History of fall COMPARISON: None available FINDINGS: The alignment of the carpal bones grossly appears unremarkable. Mild degenerative changes identified in the first carpometacarpal joint. The alignment of the metacarpophalangeal joints, interphalangeal joints grossly appears unremarkable. IMPRESSION: No acute osseous findings. Electronically signed by: Rosendo Lester MD (03/11/2019 12:52 AM) [facility]
== END 2019-03-10 21:59 | disposition home or self-care (01) ==
LOC: ER 17:30
DX: S60.221A Contusion of right hand, initial encounter (principal); S00.81XA Abrasion of other part of head, initial encounter; S00.31XA Abrasion of nose, initial encounter; E11.9 Type 2 diabetes mellitus without complications; J45.909 Unspecified asthma, uncomplicated; E78.00 Pure hypercholesterolemia, unspecified; I10 Essential (primary) hypertension; I25.2 Old myocardial infarction; G89.29 Other chronic pain; Z88.0 Allergy status to penicillin; Z88.1 Allergy status to other antibiotic agents; Z88.8 Allergy status to other drugs, medicaments and biological substances; V00.811A Fall from moving wheelchair (powered), initial encounter; Y92.488 Other paved roadways as the place of occurrence of the external cause; Y93.89 Activity, other specified; Y99.8 Other external cause status
CPT/HCPCS: 29125; 70450; 70486; 72125; 73130; 99284-25

== ENCOUNTER → 2019-05-21 | Outpatient (CLI) | payer MEDICARE, OTHER ==
--- NOTE | 2019-05-21 18:15 | RAD ---
BILATERAL SCREENING MAMMOGRAM, 3-D History: Routine screening. Comparison: 05/14/2014, 05/16/2015, 05/15/2016, 05/16/2017, 05/19/2018. Technique: MLO and CC digital tomosynthesis (3D) images obtained. Radiologist reviewed these images on dedicated workstation. Findings: Breast Tissue Density B : There are scattered areas of fibroglandular density. There are no dominant masses, suspicious microcalcifications, or architectural distortion. IMPRESSION: No mammographic evidence of malignancy. Recommend routine screening. BI-RADS category 1: Negative. The images were reviewed with computer-aided detection. Patient information is entered into reminder system with a target due date for the next screening mammogram. Mammography is the most sensitive method for finding small breast cancers, but it does not detect them all and is not a substitute for careful clinical examination. A negative mammogram does not negate a clinically suspicious finding and should not result in delay in biopsying a clinically suspicious abnormality. "Our facility is accredited by the [employer] Mammography Program." Electronically signed by: Boston Guillory MD (05/21/2019 6:12 PM) [facility]
== END | disposition home or self-care (01) ==
LOC: MAMMO 14:00
PROVIDERS: ATTEND Family Medicine
DX: Z12.31 Encounter for screening mammogram for malignant neoplasm of breast (principal); N64.89 Other specified disorders of breast
CPT/HCPCS: 77063; 77067

== ENCOUNTER 2019-11-24 12:54 | Observation (INO) | payer MEDICARE, OTHER ==
[~2019-11-24] VITALS: Ht 152.4 cm; Wt 72.2 kg
[~2019-11-24 12:54] MED LIST changes: -ASPI-612 PO; +ASPI-886 PO; -OXYC-411 PO; +OXYC1TAB20 PO; +PREG-9 PO; -PREG75CA PO
--- NOTE | 2019-11-24 13:28 | PHYS DOC ---
Past Medical History Past Medical History: Asthma, Diabetes-Type II, Diverticulitis, Fibromyalgia, High Cholesterol, Hypertension, [place], Other Additional Past Medical Histor: lower ext edema, chronic back pain Past Surgical History: Appendectomy, Hysterectomy, Knee Replacement, Tonsillectomy, Tubal ligation Additional Past Surgical Histo: HERNIA, COLON RESECTION X 2; L knee Smoking Status: Former Smoker Alcohol Use: Sober Drug Use: None General Adult EDM: Chief Complaint: CHEST PAIN HPI: HPI: 69-year-old female past medical history significant for diabetes, hypertension, hyperlipidemia, GERD with history of irregular heartbeat, presents to the ED with complaints of intermittent episodes of left-sided sharp, nonradiating chest pain that started at 9 PM last night with associated sweating and shortness of breath. Patient states she is had this in the past and was told by her acetylene torch operator Dr. Guo at that this is musculoskeletal pain. Had an abnormal stress test 2 to 3 years ago with a normal cardiac cath, no stents were placed. Patient's father of a massive [place] in his 70s. Denies any cocaine or methamphetamine abuse. No associated syncope. Took nitroglycerin at 9:00 this morning. She currently feels a little lightheaded but has no active chest pain in the ED. Denies any recent upper respiratory infection or known exposure to COVID. Review of systems: Denies associated fever, chills, headache, neck stiffness, vomiting, diarrhea, abdominal pain, back pain, dysuria, hematuria, leg swelling, rash, hemoptysis, sore throat, cough, tearing or ripping chest pain, near syncope, dizziness or confusion. Heart Score: HEART Score for Chest Pain: HEART Score for Chest Pain Response (Comments) Value History Slighlty/Non-Suspicious 0 ECG Normal 0 Age > 65 2 Risk Factors >3 Risk Factors or Hx CAD 2 Troponin < Normal Limit 0 Total 4 Risk Factors: Risk Factors: DM, Current or recent (<one month) smoker, HTN, HLP, family history of CAD, obesity. Risk Scores: Score 0 - 3: 2.5% MACE over next 6 weeks - Discharge Home Score 4 - 6: 20.3% MACE over next 6 weeks - Admit for Clinical Observation Score 7 - 10: 72.7% MACE over next 6 weeks - Early Invasive Strategies Allergies: Allergies: Allergies Coded Allergies Type Severity Reaction Last Updated Verified Penicillins Allergy Intermediate Rash 11/18/13 Yes adhesive Allergy Intermediate RASH- TAPE 11/18/13 Yes doxycycline Allergy Intermediate rash 01/21/15 Yes Physical Exam: PE: Constitutional: Well developed, well nourished, no acute distress, non-toxic appearance. [] HENT: Normocephalic, atraumatic, bilateral external ears normal, oropharynx moist, no oral exudates, nose normal. [] Eyes: PERRLA, EOMI, conjunctiva normal, no discharge. [] Neck: Normal range of motion, no tenderness, supple, no stridor. [] Cardiovascular:Heart rate regular rhythm, no murmur [] Lungs & Thorax: Bilateral breath sounds clear to auscultation [] Abdomen: Bowel sounds normal, soft, no tenderness, no masses, no pulsatile masses. [] Skin: Warm, dry, no erythema, no rash. [] Back: No tenderness, no CVA tenderness. [] Extremities: No tenderness, no cyanosis, no clubbing, ROM intact, no edema. [] Neurologic: Alert and oriented X 3, normal motor function, normal sensory function, no focal deficits noted. [] Psychologic: Affect normal, judgement normal, mood normal. [] EKG: EKG: Sinus rhythm at 77 bpm, left axis deviation, [place] 200, borderline first-degree AV block, no T wave inversions, no ST elevations or ST depressions Radiology/Procedures: Radiology/Procedures: []IMAGING REPORT Signed PATIENT: JODY BAIRD ACCOUNT: [id number] : 1950 LOCATION: ER AGE: 69 SEX: F EXAM STATUS: REG ER ORD. PHYSICIAN: DOTTY SPENCER DO REASON: cp PROCEDURE: PORTABLE CHEST 1V Single AP view of the chest. Comparison: None. Indication: Chest pain Findings: The aorta is tortuous. The heart is not enlarged. There is no pneumothorax or effusion. No air space or interstitial disease. Impression: 1. No acute cardiopulmonary process. Electronically signed by: Bart Mane MD (11/24/2019 1:46 PM) [id number] DICTATED and SIGNED BY: BART MANE MD DATE: 11/24/19 1346 Course & Med Decision Making: Course & Med Decision Making Pertinent Labs and Imaging studies reviewed. (See chart for details) 10 for atypical chest pain in a moderate risk patient. EKG showing new left axis, initial troponin negative. Did discuss this with [facility] cardiology nurse practitioner who reviewed patient's records from . Patient had an normal cardiac cath in March 2016 and a normal cardiac echo in 2017. Has not followed up with cardiology since. Will admit for observation for serial troponins. Patient stable at time of admission and agrees with this plan. I have spoken with the patient and/or caregivers. I have explained the patient's condition, diagnosis and treatment plan based on the information available to me at this time. I have answered the patient's and/or caregivers questions and answered any concerns. The patient and/or caregivers have as good an understanding of the patient's diagnosis, condition and treatment plan as can be expected at this point. The patient has been stabilized within the capability of the emergency department. The patient will be transported for further care and management or will be moved to an observation or inpatient service. I have communicated with the staff or medical practitioner taking over this patient's care. Raheem Disclaimer: Raheem Disclaimer: This electronic medical record was generated, in whole or in part, using a voice recognition dictation system. Departure Departure Impression: Primary Impression: Chest pain at rest Additional Impression: Uncontrolled diabetes mellitus Disposition: ADMITTED INPATIENT Admitting Physician: HOMERO (Dr. Dorado) Condition: STABLE Referrals: ARISTIDES LOJA MD (PCP) Justicifation of Admission Dx: Justifications for Admission: Justification of Admission Dx: Yes Angina: Symp at Rest DOTTY SPENCER DO Nov 24, 2019 13:28
--- NOTE | 2019-11-24 13:37 | EKG ---
[facility] [address] [place] [address] Test Date: 2019-11-24 Test Time: 13:03:10 Pat Name: JODY BAIRD Department: Room: Gender: F Artist Relationship Manager: EMMANUELLE : 1950 Requested By: DOTTY SPENCER Order Number: [id number] Reading MD: Measurements Intervals [place] Rate: 77 P: 32 GA: 200 QRS: -19 QRSD: 92 T: 66 QT: 386 QTc: 439 Interpretive Statements SINUS RHYTHM ATRIAL PREMATURE COMPLEX(ES) LEFTWARD AXIS QRS(T) CONTOUR ABNORMALITY CONSISTENT WITH ANTEROSEPTAL INFARCT PROBABLY OLD ABNORMAL ECG RI6.02 No previous ECG available for comparison
[2019-11-24 13:44] LABS: BASO # 0.1 x10^3/uL (0.0-0.2); BASO % 1 % (0-3); EOS # 0.1 x10^3/uL (0.0-0.7); EOS % 1 % (0-3); HEMOGLOBIN 15.2 g/dL (12.0-15.5); LYMPH # 2.9 x10^3/uL (1.0-4.8); LYMPH % 29 % (24-48); MEAN CORPUSCULAR HEMOGLOBIN 31 pg (25-35); MEAN CORPUSCULAR HGB CONC 35 g/dL (31-37); MEAN CORPUSCULAR VOLUME 88 fL (79-100); MONO # 0.7 x10^3/uL (0.0-1.1); MONO % 7 % (0-9); NEUT # 6.1 x10^3/uL (1.8-7.7); NEUT % 62 % (31-73); PLATELET COUNT 292 x10^3/uL (140-400); RED BLOOD COUNT 4.97 x10^6/uL (3.50-5.40); RED CELL DISTRIBUTION WIDTH 14.2 % (11.5-14.5); WHITE BLOOD COUNT 9.9 x10^3/uL (4.0-11.0)
--- NOTE | 2019-11-24 13:49 | RAD ---
Single AP view of the chest. Comparison: None. Indication: Chest pain Findings: The aorta is tortuous. The heart is not enlarged. There is no pneumothorax or effusion. No air space or interstitial disease. Impression: 1. No acute cardiopulmonary process. Electronically signed by: Bart Mane MD (11/24/2019 1:46 PM) [id number]
[2019-11-24 13:55] LABS: CALCIUM 9.4 mg/dL (8.5-10.1); CREATININE 0.7 mg/dL (0.6-1.0); GFR 83.2; POTASSIUM 3.6 mmol/L (3.5-5.1)
[2019-11-24 14:01] LABS: ALBUMIN 3.7 g/dL (3.4-5.0); ALBUMIN/GLOBULIN RATIO 0.9 (1.0-1.7); MAGNESIUM 2.3 mg/dL (1.8-2.4); TOTAL BILIRUBIN 0.4 mg/dL (0.2-1.0); TOTAL PROTEIN 7.7 g/dL (6.4-8.2)
--- NOTE | 2019-11-24 16:03 | PDOC2 ---
CARDIAC CONSULT DATE OF CONSULT Date of Consult DATE: 11/24/19 TIME: 15:45 REASON FOR CONSULT Reason for Consult: Chest pain REFERRING PHYSICIAN Referring Physician: [facility] SOURCE Source: Chart review, Patient HISTORY OF PRESENT ILLNESS HISTORY OF PRESENT ILLNESS This is a pleasant 69 yo female admitted for complains of chest pain. Reports that his is left chest and t is sharp started last night and had to call her daughter to help her out. No falls, recent injury or heavy lifting. No associated SOA and her asthma is well controlled denying of intractable coughing or wheezing. Denies any fever but felt cold this morning. No palpitations, dizziness. Has gerd but compliant with her PPI. She also takes BP med, statin and has had cardiac workup in the past. She saw Dr. Guo last on 2017. The last stress test was 2015. No ROM difficutly to her upper body and no radiating pain from her left chest. Denies any VTE, or any past arrhythmias. She had this type of pain before and was given a medications that starts with :A" but this was discontinued. No ALBERT, n/v PAST MEDICAL HISTORY Cardiovascular: HTN, Hyperlipidemia Pulmonary: Asthma CENTRAL NERVOUS SYSTEM: Other (lumbar radiculopathy) GI: GERD Heme/Onc: No pertinent hx Hepatobiliary: No pertinent hx Psych: Anxiety Musculoskeletal: low back pain (spinal stenosis), Osteoarthritis Rheumatologic: Rheumatoid arthritis Infectious disease: No pertinent hx ENT: No pertinent hx Renal/: No pertinent hx Endocrine: Diabetes (2) Dermatology: Other (skin CA) PAST SURGICAL HISTORY Past Surgical History: Appendectomy, Hernia Repair, Total knee replacement, Tubal Ligation, Tonsillectomy, Hysterectomy, Other (wisdom tooth extraction; [facility]) FAMILY HISTORY Family History: Coronary Artery Disease (father), Diabetes (father) SOCIAL HISTORY Smoke: No ALCOHOL: none Drugs: None Lives: with Family ALLERGIES ALLERGIES: Coded Allergies: Penicillins (Verified Allergy, Intermediate, Rash, 11/18/13) adhesive (Verified Allergy, Intermediate, RASH- TAPE, 11/18/13) doxycycline (Verified Allergy, Intermediate, rash, 01/21/15) RASH ROS Review of System 14 point ROS evluated with pertinent positives noted per HPI PHYSICAL EXAM General: Alert, Oriented X3, Cooperative, No acute distress HEENT: Atraumatic, Mucous membr. moist/pink Lungs: Clear to auscultation, Normal air movement Heart: Regular rate (SR), Normal S1, Normal S2, No murmurs Abdomen: Soft, No tenderness Extremities: No cyanosis, No edema Skin: No breakdown, No significant lesion Neuro: Normal speech, Sensation intact Psych/Mental Status: Mental status NL, Mood NL MUSCULOSKELETAL: Osteoarthritic changes both hands VITALS/I&O VITALS/I&O: Vital Signs Date Time Temp Pulse Resp B/P (MAP) Pulse Ox O2 Delivery O2 Flow Rate FiO2 11/24/19 15:09 74 20 145/63 (90) 95 Room Air 11/24/19 13:03 98.3 98.3 LABS Lab: Laboratory Tests Test 11/24/19 13:33 White Blood Count 9.9 x10^3/uL (4.0-11.0) Red Blood Count 4.97 x10^6/uL (3.50-5.40) Hemoglobin 15.2 g/dL (12.0-15.5) Hematocrit 44.0 % (36.0-47.0) Mean Corpuscular Volume 88 fL (79-100) Mean Corpuscular Hemoglobin 31 pg (25-35) Mean Corpuscular Hemoglobin Concent 35 g/dL (31-37) Red Cell Distribution Width 14.2 % (11.5-14.5) Platelet Count 292 x10^3/uL (140-400) Neutrophils (%) (Auto) 62 % (31-73) Lymphocytes (%) (Auto) 29 % (24-48) Monocytes (%) (Auto) 7 % (0-9) Eosinophils (%) (Auto) 1 % (0-3) Basophils (%) (Auto) 1 % (0-3) Neutrophils # (Auto) 6.1 x10^3/uL (1.8-7.7) Lymphocytes # (Auto) 2.9 x10^3/uL (1.0-4.8) Monocytes # (Auto) 0.7 x10^3/uL (0.0-1.1) Eosinophils # (Auto) 0.1 x10^3/uL (0.0-0.7) Basophils # (Auto) 0.1 x10^3/uL (0.0-0.2) Sodium Level 137 mmol/L (136-145) Potassium Level 3.6 mmol/L (3.5-5.1) Chloride Level 101 mmol/L (98-107) Carbon Dioxide Level 27 mmol/L (21-32) Anion Gap 9 (6-14) Blood Urea Nitrogen 10 mg/dL (7-20) Creatinine 0.7 mg/dL (0.6-1.0) Estimated GFR (Cockcroft-Gault) 83.2 BUN/Creatinine Ratio 14 (6-20) Glucose Level 258 mg/dL (70-99) H Calcium Level 9.4 mg/dL (8.5-10.1) Magnesium Level 2.3 mg/dL (1.8-2.4) Total Bilirubin 0.4 mg/dL (0.2-1.0) Aspartate Amino Transferase (AST) 16 U/L (15-37) Alanine Aminotransferase (ALT) 26 U/L (14-59) Alkaline Phosphatase 93 U/L (46-116) Troponin I Quantitative < 0.017 ng/mL (0.000-0.055) LW-Vib-F-Type Natriuretic Peptide 67 pg/mL (0-124) Total Protein 7.7 g/dL (6.4-8.2) Albumin 3.7 g/dL (3.4-5.0) Albumin/Globulin Ratio 0.9 (1.0-1.7) L Laboratory Tests 11/24/19 13:33 Laboratory Tests 11/24/19 13:33 ECHOCARDIOGRAM ECHOCARDIOGRAM [facility] TTE 06/19/2017 No regional wall motion abnormalities are seen. Overall LV systolic function appears normal. The estimated left ventricular ejection fraction is 55-60%. Normal left ventricular diastolic function. Right ventricular contractility appears normal. Normal chamber dimensions. Cardiac valve structures are unremarkable. There is no evidence of significant valvular regurgitation or stenosis by doppler exam. No pericardial effusion is seen HEART CATH HEART CATH 03/27/2016 SELECTIVE CORONARY ANGIOGRAPHY: LEFT MAIN CORONARY ARTERY: The left main coronary artery arises normally from the left coronary sinus. It is a moderate-size vessel, which trifurcates into the left anterior descending coronary artery, an intermediate ramus branch, and the left circumflex coronary artery. It is free of angiographically significant disease. LEFT ANTERIOR DESCENDING CORONARY ARTERY: The left anterior descending coronary artery is a large vessel, which gives rise to one diagonal branch. It is a type 3 LAD. Both the left anterior descending coronary artery and the diagonal branch appear to be free of any angiographically significant disease. INTERMEDIATE RAMUS BRANCH: There is an intermediate ramus branch present. It appears to supply a large territory of myocardium. Overall, it is free of any angiographically significant disease. LEFT CIRCUMFLEX CORONARY ARTERY: The left circumflex artery appears to be a moderate caliber vessel. It gives rise to one obtuse marginal branch as well as a large posterior lateral branch. It appears to be a codominant vessel. It is free of any angiographically significant coronary artery disease. RIGHT CORONARY ARTERY: The right coronary artery is a small size codominant vessel, which arises normally from the right coronary sinus. It does produce a small posterior descending artery. Overall, it is free of any angiographically significant disease. FINAL IMPRESSION: No significant coronary artery disease involving the chilkat coronary vessels. Left ventricular hemodynamics as described above. No significant gradient was detected across the aortic valve on pullback. RECOMMENDATION: We recommend aggressive risk factor modification. Dr. Guo was present for, supervised, and directed all relevant portions of the examination. I was personally present throughout the entire procedure. 03/16/2016 /[id number] ASSESSMENT/PLAN ASSESSMENT/PLAN 1. Atypical chest pain: doubt ACS, noncardiac CP. reproducible. No significnat EKG changes. Highly suspect MSK 2. DM2 3. HLP 4. HTN: controlled 5. GERD: on home PPI 6. Obesity Recommendations 1. Trend troponin, TSH, lipids 2. Continue home regimen, secondary prevention measures. Recent mammography unremarkable 05/21/19. May need muscle relaxants/analgesics, defer to PCP JUANI SCHUMACHER APRN Nov 24, 2019 16:03
--- NOTE | 2019-11-24 17:02 | PDOC1 ---
History and Physical Date of Service: DOS: DATE: 11/24/19 TIME: 17:00 Chief Complaint: Problems: (1) Skin lesion (2) Tendinitis (3) Knee pain (4) Back pain (5) Bronchitis (6) Left-sided chest wall pain (7) Dog bite of hand (8) Neck muscle spasm (9) Carpal tunnel syndrome of left wrist (10) Contusion (11) Abrasion (12) Fall (13) Constipation (14) Abdominal pain (15) Uncontrolled diabetes mellitus (16) Chest pain at rest Chief Complain: Chest pain History of Present Illness: HPI: This is a middle-aged white female who sees Dr. Guo in the cardiology department at She carries a diagnosis of coronary disease Today she presents with chest pain Is been occurring since 9:00 last night She had associated stabbing pain and some sweating She apparently had a cath a couple years ago but sounds like they opted for medical management at that time I discussed the case with ER physician organ to meet the patient and consult cardiology Past Medical/Surgical History: PMH/PSH: Past Medical History: Asthma, Diabetes-Type II, Diverticulitis, Fibromyalgia, High Cholesterol, Hypertension, [place], Other Additional Past Medical Histor: lower ext edema, chronic back pain Past Surgical History: Appendectomy, Hysterectomy, Knee Replacement, Tonsillectomy, Tubal ligation Additional Past Surgical Histo: HERNIA, COLON RESECTION X 2; L knee Smoking Status: Former Smoker Allergies: Allergies: Coded Allergies: Penicillins (Verified Allergy, Intermediate, Rash, 11/18/13) adhesive (Verified Allergy, Intermediate, RASH- TAPE, 11/18/13) doxycycline (Verified Allergy, Intermediate, rash, 01/21/15) RASH Family History: Family History: CAD Social History: Social History: She does not drink smoke or take drugs Current Medications: Current Medications Active Scripts Active Hewett 5-325 Tablet (Acetaminophen/Hydrocodone Bitart) 1 Each Tablet 1 Tab PO PRN Q6HRS PRN Ondansetron Odt (Ondansetron) 4 Mg Tab.rapdis 1 Tab PO PRN Q6-8HRS Miralax (Polyethylene Glycol 3350) 17 Gm Powd.pack 1 Packet PO DAILY Diclofenac Sodium 50 Mg Tablet.dr 1 Tab PO BID Valium (Diazepam) 5 Mg Tablet 5 Mg PO TID Gabapentin (Gabapentin) 300 Mg Capsule 300 Mg PO TID Valium (Diazepam) 2 Mg Tablet 2 Mg PO TID PRN Hewett 5-325 Tablet (Acetaminophen/Hydrocodone Bitart) 1 Each Tablet 1 Tab PO PRN Q6HRS PRN Clindamycin Hcl 150 Mg Capsule 450 Mg PO TID 7 Days Cipro (Ciprofloxacin Hcl) 500 Mg Tablet 500 Mg PO BID 7 Days Hydrocodone-Apap 5-325 (Hydrocodone Bit/Acetaminophen) 1 Each Tablet 1 Tab PO PRN Q6HRS PRN Reported Nitrostat (Nitroglycerin) 0.4 Mg Tab.subl 0.4 Mg SL Cyclobenzaprine Hcl 10 Mg Tablet 10 Mg PO Lipitor (Atorvastatin Calcium) 10 Mg Tablet 10 Mg PO DAILY Lantus Solostar (Insulin Glargine,Hum.rec.anlog) 100 Unit/1 Ml Insuln.pen 100 Unit SQ BID Triamcinolone Acetonide 5 Gm Paste..g. 5 Gm DT PRN Xanax (Alprazolam) 1 Mg Tablet 1 Mg PO HS Ventolin Hfa Inhaler (Albuterol Sulfate) 18 Gm Hfa.aer.ad 18 Gm IH PRN Diclofenac Sodium 75 Mg Tablet.dr 75 Mg PO BID Losartan Potassium (Losartan Potassium) 25 Mg Tablet 25 Mg PO Lantus (Insulin Glargine,Hum.rec.anlog) 100 Unit/1 Ml Vial 100 Unit SQ Furosemide 40 Mg Tablet 40 Mg PO Cetirizine Hcl 10 Mg Tablet 10 Mg PO Potassium Chloride 20 Meq Tab.er.prt 20 Meq PO Dexilant (Dexlansoprazole) 30 Mg Castillo.mp 30 Mg PO Lyrica (Pregabalin) 75 Mg Capsule 75 Mg PO BID ROS: Review of Systems Review of System REVIEW OF SYSTEMS: GENERAL: Denies weakness SKIN: No bruising, hair changes or rashes. EYES: No blurred, double or loss of vision. NOSE AND THROAT: No history of nosebleeds, hoarseness or sore throat. HEART: Complains of chest pain LUNGS: Denies cough, hemoptysis, wheezing or shortness of breath. GASTROINTESTINAL: Denies changes in appetite, nausea, vomiting, diarrhea or constipation. GENITOURINARY: No history of frequency, urgency, hesitancy or nocturia. NEUROLOGIC: Denies history of numbness, tingling, or tremor. PSYCHIATRIC: No history of panic, anxiety or depression. ENDOCRINE: No history of heat or cold intolerance, polyuria or polydipsia. EXTREMITIES: Denies joint pain, pain on walking or stiffness. Physical Exam: Vital Signs: Vital Signs Date Time Temp Pulse Resp B/P (MAP) Pulse Ox O2 Delivery O2 Flow Rate FiO2 11/24/19 16:09 64 20 93/49 (64) 98 Room Air 11/24/19 13:03 98.3 98.3 Physcial Exam: GEN: No apparent distress. Alert and oriented HEENT: Normal cephalic, atraumatic, external auditory canals are patent EYES: Extraocular muscles are intact, pupil are equally round and reactive to light and accommodation MUSCULOSKELETAL: Well developed , well nourished, good range of motion ENDOCRINE: No thyromegaly was palpated LYMPHATICS: No cervical chain or axillary nodes were noted HEMATOPOIETIC: No bruising NECK: Supple, no JVD, no thyromegaly was noted LUNGS: Clear to auscultation in all lung medina without rhonchi or wheezing HEART: RRR, S!, S2 present. Peripheral pulses intact, no obvious murmurs noted ABDOMEN: Soft, nontender. Positive bowel sounds, no organomegaly, normal bowel sounds EXTREMITIES: Without clubbing, cyanosis, or edema. Pedal pulses intact. Negative Homans sign NEUROLOGIC: Normal speech and tone. A&O x 3, moves all extremities, no obvious focal deficits PSYCHIATRIC: Normal affect, normal mood. Stable SKIN: No ulcerations or rashes, good skin turgor, no jaundice VASCULAR: Good capillary refill, neurovascular bundle appears to be intact Labs: Labs: Laboratory Tests Test 11/24/19 13:30 11/24/19 13:33 11/24/19 16:05 Thyroid Stimulating Hormone (TSH) 1.266 uIU/mL (0.358-3.74) White Blood Count 9.9 x10^3/uL (4.0-11.0) Red Blood Count 4.97 x10^6/uL (3.50-5.40) Hemoglobin 15.2 g/dL (12.0-15.5) Hematocrit 44.0 % (36.0-47.0) Mean Corpuscular Volume 88 fL (79-100) Mean Corpuscular Hemoglobin 31 pg (25-35) Mean Corpuscular Hemoglobin Concent 35 g/dL (31-37) Red Cell Distribution Width 14.2 % (11.5-14.5) Platelet Count 292 x10^3/uL (140-400) Neutrophils (%) (Auto) 62 % (31-73) Lymphocytes (%) (Auto) 29 % (24-48) Monocytes (%) (Auto) 7 % (0-9) Eosinophils (%) (Auto) 1 % (0-3) Basophils (%) (Auto) 1 % (0-3) Neutrophils # (Auto) 6.1 x10^3/uL (1.8-7.7) Lymphocytes # (Auto) 2.9 x10^3/uL (1.0-4.8) Monocytes # (Auto) 0.7 x10^3/uL (0.0-1.1) Eosinophils # (Auto) 0.1 x10^3/uL (0.0-0.7) Basophils # (Auto) 0.1 x10^3/uL (0.0-0.2) Sodium Level 137 mmol/L (136-145) Potassium Level 3.6 mmol/L (3.5-5.1) Chloride Level 101 mmol/L (98-107) Carbon Dioxide Level 27 mmol/L (21-32) Anion Gap 9 (6-14) Blood Urea Nitrogen 10 mg/dL (7-20) Creatinine 0.7 mg/dL (0.6-1.0) Estimated GFR (Cockcroft-Gault) 83.2 BUN/Creatinine Ratio 14 (6-20) Glucose Level 258 mg/dL (70-99) Calcium Level 9.4 mg/dL (8.5-10.1) Magnesium Level 2.3 mg/dL (1.8-2.4) Total Bilirubin 0.4 mg/dL (0.2-1.0) Aspartate Amino Transf (AST/SGOT) 16 U/L (15-37) Alanine Aminotransferase (ALT/SGPT) 26 U/L (14-59) Alkaline Phosphatase 93 U/L (46-116) Troponin I Quantitative < 0.017 ng/mL (0.000-0.055) < 0.017 ng/mL (0.000-0.055) VE-Dtt-Z-Type Natriuretic Peptide 67 pg/mL (0-124) Total Protein 7.7 g/dL (6.4-8.2) Albumin 3.7 g/dL (3.4-5.0) Albumin/Globulin Ratio 0.9 (1.0-1.7) Laboratory Tests Test 11/24/19 13:30 11/24/19 13:33 11/24/19 16:05 Thyroid Stimulating Hormone (TSH) 1.266 uIU/mL (0.358-3.74) White Blood Count 9.9 x10^3/uL (4.0-11.0) Red Blood Count 4.97 x10^6/uL (3.50-5.40) Hemoglobin 15.2 g/dL (12.0-15.5) Hematocrit 44.0 % (36.0-47.0) Mean Corpuscular Volume 88 fL (79-100) Mean Corpuscular Hemoglobin 31 pg (25-35) Mean Corpuscular Hemoglobin Concent 35 g/dL (31-37) Red Cell Distribution Width 14.2 % (11.5-14.5) Platelet Count 292 x10^3/uL (140-400) Neutrophils (%) (Auto) 62 % (31-73) Lymphocytes (%) (Auto) 29 % (24-48) Monocytes (%) (Auto) 7 % (0-9) Eosinophils (%) (Auto) 1 % (0-3) Basophils (%) (Auto) 1 % (0-3) Neutrophils # (Auto) 6.1 x10^3/uL (1.8-7.7) Lymphocytes # (Auto) 2.9 x10^3/uL (1.0-4.8) Monocytes # (Auto) 0.7 x10^3/uL (0.0-1.1) Eosinophils # (Auto) 0.1 x10^3/uL (0.0-0.7) Basophils # (Auto) 0.1 x10^3/uL (0.0-0.2) Sodium Level 137 mmol/L (136-145) Potassium Level 3.6 mmol/L (3.5-5.1) Chloride Level 101 mmol/L (98-107) Carbon Dioxide Level 27 mmol/L (21-32) Anion Gap 9 (6-14) Blood Urea Nitrogen 10 mg/dL (7-20) Creatinine 0.7 mg/dL (0.6-1.0) Estimated GFR (Cockcroft-Gault) 83.2 BUN/Creatinine Ratio 14 (6-20) Glucose Level 258 mg/dL (70-99) Calcium Level 9.4 mg/dL (8.5-10.1) Magnesium Level 2.3 mg/dL (1.8-2.4) Total Bilirubin 0.4 mg/dL (0.2-1.0) Aspartate Amino Transf (AST/SGOT) 16 U/L (15-37) Alanine Aminotransferase (ALT/SGPT) 26 U/L (14-59) Alkaline Phosphatase 93 U/L (46-116) Troponin I Quantitative < 0.017 ng/mL (0.000-0.055) < 0.017 ng/mL (0.000-0.055) VA-Hlz-H-Type Natriuretic Peptide 67 pg/mL (0-124) Total Protein 7.7 g/dL (6.4-8.2) Albumin 3.7 g/dL (3.4-5.0) Albumin/Globulin Ratio 0.9 (1.0-1.7) Assessment/Plan Assessment/Plan Chest pain rule out recurrent coronary disease Plan Cardiac monitoring Serial enzymes Serial EKGs Consult cardiology Home meds DVT prophylaxis Full code CINDY VEGA III DO Nov 24, 2019 17:02
[2019-11-24] MEDS ORDERED: ACETAMINOPHEN 325 MG TABLET. PO ONE (18:15)
[2019-11-24] MEDS ORDERED: ASPIRIN CHEWABLE 81 MG TABLET. PO ONE (19:45)
[2019-11-24 20:00] VITALS: BP 138/72
[2019-11-24] MEDS ORDERED: EMPA10TA PO (21:18)
[2019-11-24] MEDS ORDERED: HYDR-2765 PO (21:18)
[2019-11-24] MEDS ORDERED: INSU100V13 SQ (21:18)
[2019-11-24] MEDS ORDERED: PREG-9 PO (21:18)
[2019-11-24] MEDS ORDERED: LOSA-73 PO (21:18)
[2019-11-24] MEDS ORDERED: NAPR-514 PO (21:18)
[2019-11-24] MEDS ORDERED: INSU100C4 SQ (21:28)
[2019-11-24 23:45] VITALS: BP 98/49
[2019-11-24] MEDS ORDERED: NITROGLYCERIN SUBLINGUAL 0.4 MG BOTTLE OF 25. SL SCH (23:45)
[2019-11-24] MEDS ORDERED: FUROSEMIDE 40 MG TABLET. PO PRN (23:45)
[2019-11-25] MEDS ORDERED: PREGABALIN 75 MG CAPSULE PO SCH (00:30)
[2019-11-25] MEDS ORDERED: INSULIN GLARGINE SYRINGE. SQ SCH (00:30)
[2019-11-25] MEDS ORDERED: INSU100V41 SQ ×3 (01:38→10:23)
[2019-11-25 03:45] VITALS: BP 95/42
[2019-11-25] MEDS: NAPROXEN 500 MG TABLET PO SCH ×2 (03:49→12:22)
[2019-11-25] MEDS: HYDROcodone/APAP 7.5/325MG 1 TAB TABLET PO PRN ×2 (03:50→12:27)
[2019-11-25 05:05] LABS: CHOLESTEROL/HDL RATIO 4.4
[2019-11-25 07:00] VITALS: BP 105/53
[2019-11-25] MEDS ORDERED: NON FORMULARY ITEM (Insulin Aspart (Novolog) 100 UNIT) SQ SCH (07:30)
--- NOTE | 2019-11-25 08:55 | PDOC ---
[employer] PROGRESS NOTE Date of Service DOS: DATE: 11/25/19 TIME: 08:49 Chief Complaint Chief Complaint Chest pain History of Present Illness History of Present Illness Pt seen and examined. Pt pleasantly resting in bed, NAD. Chart reviewed, discussed with RN. Vitals/I&O Vitals/I&O: Vital Signs Date Time Temp Pulse Resp B/P (MAP) Pulse Ox O2 Delivery O2 Flow Rate FiO2 11/25/19 07:00 97.7 61 18 105/53 (70) 99 Room Air 97.7 I & O 11/24/19 11/24/19 11/25/19 15:00 23:00 07:00 Intake Total 300 ml Balance 300 ml Physical Exam General: Alert, Oriented X3, Cooperative, No acute distress Heart: Regular rate (SR), Normal S1, Normal S2, No murmurs Abdomen: Soft, No tenderness Extremities: No cyanosis, No edema Skin: No breakdown, No significant lesion Labs Labs: Laboratory Tests Test 11/24/19 13:30 11/24/19 13:33 11/24/19 16:05 11/24/19 19:30 Thyroid Stimulating Hormone (TSH) 1.266 uIU/mL (0.358-3.74) White Blood Count 9.9 x10^3/uL (4.0-11.0) Red Blood Count 4.97 x10^6/uL (3.50-5.40) Hemoglobin 15.2 g/dL (12.0-15.5) Hematocrit 44.0 % (36.0-47.0) Mean Corpuscular Volume 88 fL (79-100) Mean Corpuscular Hemoglobin 31 pg (25-35) Mean Corpuscular Hemoglobin Concent 35 g/dL (31-37) Red Cell Distribution Width 14.2 % (11.5-14.5) Platelet Count 292 x10^3/uL (140-400) Neutrophils (%) (Auto) 62 % (31-73) Lymphocytes (%) (Auto) 29 % (24-48) Monocytes (%) (Auto) 7 % (0-9) Eosinophils (%) (Auto) 1 % (0-3) Basophils (%) (Auto) 1 % (0-3) Neutrophils # (Auto) 6.1 x10^3/uL (1.8-7.7) Lymphocytes # (Auto) 2.9 x10^3/uL (1.0-4.8) Monocytes # (Auto) 0.7 x10^3/uL (0.0-1.1) Eosinophils # (Auto) 0.1 x10^3/uL (0.0-0.7) Basophils # (Auto) 0.1 x10^3/uL (0.0-0.2) Sodium Level 137 mmol/L (136-145) Potassium Level 3.6 mmol/L (3.5-5.1) Chloride Level 101 mmol/L (98-107) Carbon Dioxide Level 27 mmol/L (21-32) Anion Gap 9 (6-14) Blood Urea Nitrogen 10 mg/dL (7-20) Creatinine 0.7 mg/dL (0.6-1.0) Estimated GFR (Cockcroft-Gault) 83.2 BUN/Creatinine Ratio 14 (6-20) Glucose Level 258 mg/dL (70-99) Calcium Level 9.4 mg/dL (8.5-10.1) Magnesium Level 2.3 mg/dL (1.8-2.4) Total Bilirubin 0.4 mg/dL (0.2-1.0) Aspartate Amino Transf (AST/SGOT) 16 U/L (15-37) Alanine Aminotransferase (ALT/SGPT) 26 U/L (14-59) Alkaline Phosphatase 93 U/L (46-116) Troponin I Quantitative < 0.017 ng/mL (0.000-0.055) < 0.017 ng/mL (0.000-0.055) < 0.017 ng/mL (0.000-0.055) LA-Rej-L-Type Natriuretic Peptide 67 pg/mL (0-124) Total Protein 7.7 g/dL (6.4-8.2) Albumin 3.7 g/dL (3.4-5.0) Albumin/Globulin Ratio 0.9 (1.0-1.7) Test 11/24/19 20:49 11/25/19 04:28 11/25/19 08:07 Glucose (Fingerstick) 295 mg/dL (70-99) 196 mg/dL (70-99) Triglycerides Level 171 mg/dL (0-150) Cholesterol Level 218 mg/dL (0-200) LDL Cholesterol, Calculated 135 mg/dL (0-100) VLDL Cholesterol, Calculated 34 mg/dL (0-40) Non-HDL Cholesterol Calculated 169 mg/dL (0-129) HDL Cholesterol 49 mg/dL (40-60) Cholesterol/HDL Ratio 4.4 Review of Systems Review of Systems: Pt denies weakness, pt denies NVD Assessment and Plan Assessmemt and Plan Problems Medical Problems: (1) Chest pain at rest Status: Acute (2) Uncontrolled diabetes mellitus Status: Acute Assessment: Chest pain rule out recurrent coronary disease Plan Serial enzymes Serial ECG Daily aspirin Awaiting cardiac input DVT prophylaxis Home meds Full code Discharge disposition pending cardiology results Comment Review of Relevant I have reviewed the following items jermain (where applicable) has been applied. Medications: Current Medications Medications (Trade) Dose Ordered Sig/Dee Route PRN Reason Start Time Stop Time Status Last Admin Dose Admin Acetaminophen (Tylenol) 650 mg 1X ONCE PO 11/24/19 18:15 11/24/19 18:16 DC 11/24/19 18:16 Aspirin (Aspirin Chewable) 324 mg 1X ONCE PO 11/24/19 19:45 11/24/19 19:46 DC 11/24/19 19:42 Acetaminophen/ Hydrocodone Bitart (Lortab 7.5/325) 1 tab TID PRN PRN PO PAIN 11/24/19 23:45 11/25/19 03:50 Naproxen (Naprosyn) 500 mg BID PO 11/25/19 00:30 11/25/19 03:49 Pregabalin (Lyrica) 75 mg HS PO 11/25/19 00:30 11/25/19 03:49 CINDY VEGA III DO Nov 25, 2019 08:55
[2019-11-25] MEDS ORDERED: LOSARTAN POTASSIUM 50 MG TABLET. PO SCH (09:00)
[2019-11-25] MEDS ORDERED: CETIRIZINE HCL 10 MG TABLET. PO SCH (09:00)
[2019-11-25] MEDS ORDERED: NON FORMULARY ITEM (Empagliflozin (Jardiance) 10 MG) PO SCH (09:00)
--- NOTE | 2019-11-25 10:58 | PDOC ---
CARDIO Progress Notes Date and Time Date of Service 11/25/19 Time of Evaluation 1050 Subjective Subjective: No Chest Pain, No shortness of breath, No Palpitations Vitals Vitals Vital Signs Date Time Temp Pulse Resp B/P (MAP) Pulse Ox O2 Delivery O2 Flow Rate FiO2 11/25/19 08:00 Room Air 11/25/19 07:00 97.7 61 18 105/53 (70) 99 97.7 Weight Weight [ ] Input and Output Intake and Output Intake and Output 11/25/19 07:00 Intake Total 300 ml Balance 300 ml Intake Oral 300 ml Laboratory Labs Laboratory Tests Test 11/24/19 13:30 11/24/19 13:33 11/24/19 16:05 11/24/19 19:30 Thyroid Stimulating Hormone (TSH) 1.266 uIU/mL (0.358-3.74) White Blood Count 9.9 x10^3/uL (4.0-11.0) Red Blood Count 4.97 x10^6/uL (3.50-5.40) Hemoglobin 15.2 g/dL (12.0-15.5) Hematocrit 44.0 % (36.0-47.0) Mean Corpuscular Volume 88 fL (79-100) Mean Corpuscular Hemoglobin 31 pg (25-35) Mean Corpuscular Hemoglobin Concent 35 g/dL (31-37) Red Cell Distribution Width 14.2 % (11.5-14.5) Platelet Count 292 x10^3/uL (140-400) Neutrophils (%) (Auto) 62 % (31-73) Lymphocytes (%) (Auto) 29 % (24-48) Monocytes (%) (Auto) 7 % (0-9) Eosinophils (%) (Auto) 1 % (0-3) Basophils (%) (Auto) 1 % (0-3) Neutrophils # (Auto) 6.1 x10^3/uL (1.8-7.7) Lymphocytes # (Auto) 2.9 x10^3/uL (1.0-4.8) Monocytes # (Auto) 0.7 x10^3/uL (0.0-1.1) Eosinophils # (Auto) 0.1 x10^3/uL (0.0-0.7) Basophils # (Auto) 0.1 x10^3/uL (0.0-0.2) Sodium Level 137 mmol/L (136-145) Potassium Level 3.6 mmol/L (3.5-5.1) Chloride Level 101 mmol/L (98-107) Carbon Dioxide Level 27 mmol/L (21-32) Anion Gap 9 (6-14) Blood Urea Nitrogen 10 mg/dL (7-20) Creatinine 0.7 mg/dL (0.6-1.0) Estimated GFR (Cockcroft-Gault) 83.2 BUN/Creatinine Ratio 14 (6-20) Glucose Level 258 mg/dL (70-99) Calcium Level 9.4 mg/dL (8.5-10.1) Magnesium Level 2.3 mg/dL (1.8-2.4) Total Bilirubin 0.4 mg/dL (0.2-1.0) Aspartate Amino Transf (AST/SGOT) 16 U/L (15-37) Alanine Aminotransferase (ALT/SGPT) 26 U/L (14-59) Alkaline Phosphatase 93 U/L (46-116) Troponin I Quantitative < 0.017 ng/mL (0.000-0.055) < 0.017 ng/mL (0.000-0.055) < 0.017 ng/mL (0.000-0.055) ZT-Qwn-Z-Type Natriuretic Peptide 67 pg/mL (0-124) Total Protein 7.7 g/dL (6.4-8.2) Albumin 3.7 g/dL (3.4-5.0) Albumin/Globulin Ratio 0.9 (1.0-1.7) Test 11/24/19 20:49 11/25/19 04:28 11/25/19 08:07 Glucose (Fingerstick) 295 mg/dL (70-99) 196 mg/dL (70-99) Triglycerides Level 171 mg/dL (0-150) Cholesterol Level 218 mg/dL (0-200) LDL Cholesterol, Calculated 135 mg/dL (0-100) VLDL Cholesterol, Calculated 34 mg/dL (0-40) Non-HDL Cholesterol Calculated 169 mg/dL (0-129) HDL Cholesterol 49 mg/dL (40-60) Cholesterol/HDL Ratio 4.4 Physical Exam HEENT: Neck Supple W Full Motion Chest: Symmetric LUNGS: Clear to Auscultation Heart: RRR Abdomen: Soft N/T Extremities: No Edema Neurology: alert, oriented, follow commands Assessment Assessment 1. Atypical chest pain; AMI ruled out. suspect noncardiac CP. reproducible. No significnat EKG changes. Highly suspect MSK 2. DM2 3. HLP 4. HTN: controlled 5. GERD: on home PPI Recommendations Okay to discharge from a CV standpoint Consider outpatient ischemic evaluation based upon risk factors Follow up with primary nicu rn, Dr. Guo upon discharge. Justicifation of Admission Dx: Justifications for Admission: Justification of Admission Dx: Yes Angina: Symp at Rest DEBORAH LEMUS APRN Nov 25, 2019 10:58
[2019-11-25 11:00] VITALS: BP 96/49
[2019-11-25] MEDS ORDERED: CYCLOBENZAPRINE 10 MG TABLET. PO PRN (11:15)
[2019-11-25] MEDS ORDERED: INSULIN LISPRO 300 UNITS/3 ML VIAL. SQ SCH ×2 (12:00→17:00)
[2019-11-25] MEDS ORDERED: CYCL10TA2 PO (13:10)
--- NOTE | 2019-11-25 13:50 | NUR ---
Discharge instructions given to patient regarding following up with her primary care physician and trauma therapist. Education given over Chest pain, HTN, and medications. Pt awaiting her ride and verbalizes understanding.
[2019-11-25] MEDS ORDERED: INSULIN DETEMIR SQ SCH (21:00)
[2019-11-25] MEDS ORDERED: ATORVASTATIN CALCIUM 10 MG TABLET. PO SCH ×2 (21:00)
--- NOTE | 2019-11-25 22:22 | DS ---
DATE OF DISCHARGE: 11/25/2019 ADMISSION DIAGNOSIS: Chest pain. DISCHARGE DIAGNOSIS: Atypical chest pain. CONSULTS: Cardiology. HOSPITAL COURSE: The patient is a pleasant middle-aged female who presented with chest pain. We admitted her, did serial enzymes, serial EKGs. We consulted Cardiology. Her workup was negative. We discharged to home. DISPOSITION: Home. ACTIVITY: As tolerated. DIET: Low sodium. MEDICATIONS: Please see the MRAD. TOTAL TIME: 34 minutes. CINDY VEGA DO DR: ORACIO/kasia JOB#: [id number] / [id number]
== END 2019-11-25 14:10 | disposition home or self-care (01) ==
LOC: ER 12:54 → ED HOLD 16:00 → 2 SOUTH 17:24
PROVIDERS: ADMIT Internal Medicine; ATTEND Internal Medicine
DX: R07.89 Other chest pain (principal); E11.65 Type 2 diabetes mellitus with hyperglycemia; J45.909 Unspecified asthma, uncomplicated; E78.00 Pure hypercholesterolemia, unspecified; I10 Essential (primary) hypertension; K21.9 Gastro-esophageal reflux disease without esophagitis; I25.2 Old myocardial infarction; E66.9 Obesity, unspecified; G56.02 Carpal tunnel syndrome, left upper limb; E78.5 Hyperlipidemia, unspecified; M06.9 Rheumatoid arthritis, unspecified; L98.9 Disorder of the skin and subcutaneous tissue, unspecified; K59.00 Constipation, unspecified; Z87.891 Personal history of nicotine dependence; Z90.49 Acquired absence of other specified parts of digestive tract; Z90.710 Acquired absence of both cervix and uterus; Z96.659 Presence of unspecified artificial knee joint
CPT/HCPCS: 36415; 71045; 80053; 80061; 82962; 83735; 83880; 84443; 84484; 85025; 93005; 96372; 99285; G0378; J1815; G0379

== ENCOUNTER → 2020-06-08 | Outpatient (CLI) | payer MEDICARE, OTHER ==
[~2020-06-08] MED LIST changes: -CLIN150C14 PO; +CLIN150C15 PO; +EMPA10TA PO; +HYDR-2765 PO; +INSU100C4 SQ; +INSU100V13 SQ; +INSU100V41 SQ; +LOSA-73 PO; +NAPR-514 PO
--- NOTE | 2020-06-14 15:24 | RAD ---
DATE: 06/08/2020 1:02 PM EXAM: MAMMO BETSY SCREENING BILATERAL HISTORY: Screening COMPARISON: 05/21/2019 Bilateral CC and MLO views of the breasts were performed. Bilateral breast tomosynthesis was performed in CC and MLO projections. This study was interpreted with the benefit of Computerized Aided Detection (CAD). FINDINGS: Breast Density: FATTY The Breast Parenchyma is primarily fatty replaced. Breast parenchyma level density A. No suspicious masses, microcalcifications or architectural distortion is present to suggest malignancy in either breast. The visualized axillae are unremarkable. IMPRESSION: No mammographic evidence of malignancy. BI-RADS CATEGORY: 1 NEGATIVE RECOMMENDED FOLLOW-UP: 12M 12 MONTH FOLLOW-UP Annual screening mammography is recommended, unless clinically indicated sooner based on symptoms or change in physical exam. PQRS compliance statement: Patient information was entered into a reminder system with a target due date for the next mammogram. Mammography is a sensitive method for finding small breast cancers, but it does not detect them all and is not a substitute for careful clinical examination. A negative mammogram does not negate a clinically suspicious finding and should not result in delay in biopsying a clinically suspicious abnormality. "Our facility is accredited by the [employer] Mammography Program."
== END ==
LOC: MAMMO 12:58
PROVIDERS: ATTEND Pediatrics
DX: Z12.31 Encounter for screening mammogram for malignant neoplasm of breast (principal)
CPT/HCPCS: 77063; 77067

== ENCOUNTER 2020-09-21 19:47 | Emergency (ER) | payer MEDICARE, OTHER ==
[~2020-09-21] VITALS: Ht 152.4 cm; Wt 69.0 kg
[2020-09-21 21:30] VITALS: BP 131/79
[2020-09-21] MEDS ORDERED: ONDANSETRON PF 4 MG/2 ML VIAL. IVP ONE (21:30)
[2020-09-21] MEDS ORDERED: MORPHINE SULFATE 4 MG/ML VIAL. IV ONE (21:30)
[2020-09-21] MEDS ORDERED: FAMOTIDINE 20 MG/2 ML VIAL IVP ONE (21:30)
[2020-09-21 21:43] LABS: BILIRUBIN,URINE SMALL (NEG); CLARITY,URINE CLEAR; COLOR,URINE YELLOW; NITRITE,URINE NEGATIVE (NEG); PH,URINE 5.5 (<5.0-8.0); PROTEIN,URINE NEGATIVE (NEG-TRACE); UROBILINOGEN,URINE 0.2 mg/dL (0.2 mg/dL)
[2020-09-21 21:43] LABS: BASO # 0.1 x10^3/uL (0.0-0.2); BASO % 0 % (0-3); EOS % 0 % (0-3); LYMPH # 1.6 x10^3/uL (1.0-4.8); LYMPH % 9 % (24-48); MEAN CORPUSCULAR HEMOGLOBIN 30 pg (25-35); MEAN CORPUSCULAR HGB CONC 33 g/dL (31-37); MEAN CORPUSCULAR VOLUME 89 fL (79-100); MONO # 1.1 x10^3/uL (0.0-1.1); MONO % 6 % (0-9); NEUT # 15.6 x10^3/uL (1.8-7.7); NEUT % 85 % (31-73); PLATELET COUNT 307 x10^3/uL (140-400); RED BLOOD COUNT 5.37 x10^6/uL (3.50-5.40); RED CELL DISTRIBUTION WIDTH 14.1 % (11.5-14.5); WHITE BLOOD COUNT 18.4 x10^3/uL (4.0-11.0)
[2020-09-21] MEDS ORDERED: IV NORMAL SALINE 1000ML BAG 1,000 ML IV ONE (21:45)
[2020-09-21 21:47] LABS: BARBITURATES NEG (NEG); BENZODIAZEPINES NEG (NEG); CANNABINOIDS NEG (NEG); COCAINE NEG (NEG); METHADONE NEG (NEG); OPIATES POS (NEG); PHENCYCLIDINE NEG (NEG)
[2020-09-21 21:49] LABS: AMPHETAMINE/METHAMPHETAMINE NEG (NEG); BACTERIA,URINE FEW /HPF (0-FEW); RBC,URINE 0 /HPF (0-2)
[2020-09-21 21:50] LABS: HYALINE CASTS, URINE FEW /HPF; YEAST,URINE PRESENT /HPF
[2020-09-21 21:50] LABS: CALCIUM 9.2 mg/dL (8.5-10.1); CREATININE 0.9 mg/dL (0.6-1.0); GFR 62.1; POTASSIUM 3.2 mmol/L (3.5-5.1)
[2020-09-21 21:56] LABS: ALBUMIN 4.6 g/dL (3.4-5.0); ALBUMIN/GLOBULIN RATIO 1.2 (1.0-1.7); TOTAL BILIRUBIN 0.5 mg/dL (0.2-1.0); TOTAL PROTEIN 8.4 g/dL (6.4-8.2)
--- NOTE | 2020-09-21 22:07 | RAD ---
CT abdomen pelvis without contrast. HISTORY: Abdominal pain, nausea and vomiting CT scan the abdomen pelvis was done without contrast. Comparison is made with an old study from May 2018. There is mild atelectasis along the right diaphragm. There is mild elevation the right diaphra gm. There is a calcified granuloma in the right lower lobe. There is no effusion. Liver is unremarkab le. There is no calcified gallstone or gallbladder wall thickening. There are granulomatous calcifica tions in the spleen. Adrenal glands are normal. Pancreas is normal. There is no mass or hydronephrosi s in the kidneys. Pancreas is normal. Patient's had a hysterectomy. There is diverticulosis of the co kwesi without diverticulitis. There is density in the anterior abdominal wall suggesting injections. Th ere is degenerative change in the lumbar spine. There is facet arthritis in the lower lumbar spine wi th spondylolisthesis at L5-S1, there is partial sacralization of S1. Appendix is not identified. Ther e is no small bowel obstruction. IMPRESSION: 1. No bowel obstruction. 2. Elevated right diaphragm with chronic atelectasis right lower lobe. 3. No calcified gallstone. 4. Spondylolisthesis L5 on S1. 5. No abdominal or pelvic mass or other acute finding. PQRS Compliance Statement: One or more of the following individualized dose reduction techniques were utilized for this examinat ion: 1. Automated exposure control 2. Adjustment of the mA and/or kV according to patient size 3. Use of iterative reconstruction technique Electronically signed by: Ger Campbell MD (09/21/2020 10:05 PM) [facility]
[2020-09-21 22:17] LABS: % BANDS 2 % (0-9); % LYMPHS 10 % (24-48); % METAS 1 % (0-0); % MONOS 3 % (0-10); % SEGS 84 % (35-66); PLT ESTIMATE ADEQUATE (ADEQUATE)
--- NOTE | 2020-09-21 22:51 | PHYS DOC ---
Past Medical History Past Medical History: Asthma, Diabetes-Type II, Diverticulitis, Fibromyalgia, High Cholesterol, Hypertension, PR, Sciatica, Other Additional Past Medical Histor: lower ext edema, chronic back pain Past Surgical History: Appendectomy, Hysterectomy, Knee Replacement, Tonsillectomy, Tubal ligation Additional Past Surgical Histo: HERNIA, COLON RESECTION X 2; L knee Smoking Status: Former Smoker Alcohol Use: Sober Additional Information: sober 2003 Drug Use: None General Adult EDM: Chief Complaint: NAUSEA/VOMITING/DIARRHEA HPI: HPI: Patient is a 70 year old female with a history of diabetes type 2, hyperten henrique, fibromyalgia, sciatica, hypertension, asthma, who presents to the ED today complaining of nausea, vomiting, chronic generalized abdominal pain, symptoms of been going on since this morning. Also complaining of chronic sciatic pain today left lower extremity. Denies any injuries. Denies any diarrhea, denies any hematemesis. Denies anything specifically exacerbating or relieving her symptoms. She states she feels fatigued from the vomiting Review of Systems: Review of Systems: Constitutional: Denies fever or chills. [] Eyes: Denies change in visual acuity. [] HENT: Denies nasal congestion or sore throat. [] Respiratory: Denies cough or shortness of breath. [] Cardiovascular: Denies chest pain or edema. [] GI: Reports chronic abdominal pain with nausea and vomiting, denies any diarrhea or hematemesis : Denies dysuria. [] Musculoskeletal: Reports chronic sciatic pain to the left lower extremity Integument: Denies rash. [] Neurologic: Denies headache, focal weakness or sensory changes. [] Psychiatric: Denies depression or anxiety. [] Heart Score: C/O Chest Pain: N/A Risk Factors: Risk Factors: DM, Current or recent (<one month) smoker, HTN, HLP, family history of CAD, obesity. Risk Scores: Score 0 - 3: 2.5% MACE over next 6 weeks - Discharge Home Score 4 - 6: 20.3% MACE over next 6 weeks - Admit for Clinical Observation Score 7 - 10: 72.7% MACE over next 6 weeks - Early Invasive Strategies Current Medications: Current Medications Medications (Trade) Dose Ordered Sig/Dee Start Time Stop Time Status Last Admin Dose Admin Famotidine (Pepcid Vial) 20 mg 1X ONCE 09/21/20 21:30 6/23/21 21:31 DC 09/21/20 22:12 20 MG Morphine Sulfate (Morphine Sulfate) 4 mg 1X ONCE 09/21/20 21:30 09/21/20 21:31 DC 09/21/20 22:12 4 MG Ondansetron HCl (Zofran) 4 mg 1X ONCE 09/21/20 21:30 09/21/20 21:31 DC 09/21/20 22:12 4 MG Sodium Chloride 1,000 ml @ 1,000 mls/hr 1X ONCE 09/21/20 21:45 09/21/20 22:44 DC 09/21/20 22:11 1,000 MLS/HR Allergies: Allergies: Allergies Coded Allergies Type Severity Reaction Last Updated Verified Iodinated Contrast Media Allergy Intermediate rash, "face turned red and hot" 09/21/20 Yes Penicillins Allergy Intermediate Rash 11/18/13 Yes adhesive Allergy Intermediate RASH- TAPE 11/18/13 Yes doxycycline Allergy Intermediate rash 01/21/15 Yes Physical Exam: PE: Constitutional: Well developed, well nourished, no acute distress, non-toxic appearance. [] HENT: Normocephalic, atraumatic, bilateral external ears normal, oropharynx moist, no oral exudates, nose normal. [] Eyes: PERRLA, EOMI, conjunctiva normal, no discharge. [] Neck: Normal range of motion, no tenderness, supple, no stridor. [] Cardiovascular:Heart rate regular rhythm, no murmur [] Lungs & Thorax: Bilateral breath sounds clear to auscultation [] Abdomen: Bowel sounds normal, soft, no tenderness, no masses, no pulsatile masses. [] Skin: Warm, dry, no erythema, no rash. [] Back: No tenderness, no CVA tenderness. [] Extremities: No tenderness, no cyanosis, no clubbing, ROM intact, no edema. [] Neurologic: Alert and oriented X 3, normal motor function, normal sensory function, no focal deficits noted. [] Psychologic: Affect normal, judgement normal, mood normal. [] Current Patient Data: Labs: Laboratory Tests Test 09/21/20 21:20 09/21/20 21:30 Urine Collection Type Unknown Urine Color Yellow Urine Clarity Clear Urine pH 5.5 (<5.0-8.0) Urine Specific [place] 1.010 (1.000-1.030) Urine Protein Negative mg/dL (NEG-TRACE) Urine Glucose (UA) >=1000 mg/dL (NEG) Urine Ketones (Stick) 15 mg/dL (NEG) Urine Blood Negative (NEG) Urine Nitrite Negative (NEG) Urine Bilirubin Small (NEG) Urine Urobilinogen Dipstick 0.2 mg/dL (0.2 mg/dL) Urine Leukocyte Esterase Negative (NEG) Urine RBC 0 /HPF (0-2) Urine WBC 1-4 /HPF (0-4) Urine Squamous Epithelial Cells Few /LPF Urine Bacteria Few /HPF (0-FEW) Urine Hyaline Casts Few /HPF Urine Mucus Mod /LPF Urine Yeast Present /HPF Urine Opiates Screen Pos (NEG) Urine Methadone Screen Neg (NEG) Urine Barbiturates Neg (NEG) Urine Phencyclidine Screen Neg (NEG) Urine Amphetamine/Methamphetamine Neg (NEG) Urine Benzodiazepines Screen Neg (NEG) Urine Cocaine Screen Neg (NEG) Urine Cannabinoids Screen Neg (NEG) Urine Ethyl Alcohol Neg (NEG) White Blood Count 18.4 x10^3/uL (4.0-11.0) H Red Blood Count 5.37 x10^6/uL (3.50-5.40) Hemoglobin 16.0 g/dL (12.0-15.5) H Hematocrit 48.0 % (36.0-47.0) H Mean Corpuscular Volume 89 fL (79-100) Mean Corpuscular Hemoglobin 30 pg (25-35) Mean Corpuscular Hemoglobin Concent 33 g/dL (31-37) Red Cell Distribution Width 14.1 % (11.5-14.5) Platelet Count 307 x10^3/uL (140-400) Neutrophils (%) (Auto) 85 % (31-73) H Lymphocytes (%) (Auto) 9 % (24-48) L Monocytes (%) (Auto) 6 % (0-9) Eosinophils (%) (Auto) 0 % (0-3) Basophils (%) (Auto) 0 % (0-3) Neutrophils # (Auto) 15.6 x10^3/uL (1.8-7.7) H Lymphocytes # (Auto) 1.6 x10^3/uL (1.0-4.8) Monocytes # (Auto) 1.1 x10^3/uL (0.0-1.1) Eosinophils # (Auto) 0.0 x10^3/uL (0.0-0.7) Basophils # (Auto) 0.1 x10^3/uL (0.0-0.2) Segmented Neutrophils % 84 % (35-66) H Band Neutrophils % 2 % (0-9) Lymphocytes % 10 % (24-48) L Monocytes % 3 % (0-10) Metamyelocytes % 1 % (0-0) H Platelet Estimate Adequate (ADEQUATE) Sodium Level 142 mmol/L (136-145) Potassium Level 3.2 mmol/L (3.5-5.1) L Chloride Level 101 mmol/L (98-107) Carbon Dioxide Level 26 mmol/L (21-32) Anion Gap 15 (6-14) H Blood Urea Nitrogen 15 mg/dL (7-20) Creatinine 0.9 mg/dL (0.6-1.0) Estimated GFR (Cockcroft-Gault) 62.1 BUN/Creatinine Ratio 17 (6-20) Glucose Level 105 mg/dL (70-99) H Calcium Level 9.2 mg/dL (8.5-10.1) Total Bilirubin 0.5 mg/dL (0.2-1.0) Aspartate Amino Transferase (AST) 14 U/L (15-37) L Alanine Aminotransferase (ALT) 21 U/L (14-59) Alkaline Phosphatase 86 U/L (46-116) Total Protein 8.4 g/dL (6.4-8.2) H Albumin 4.6 g/dL (3.4-5.0) Albumin/Globulin Ratio 1.2 (1.0-1.7) Lipase 52 U/L (73-393) L Ethyl Alcohol Level < 10 mg/dL (0-10) Laboratory Tests 09/21/20 21:30 Laboratory Tests 09/21/20 21:30 Vital Signs: Vital Signs Date Time Temp Pulse Resp B/P (MAP) Pulse Ox O2 Delivery O2 Flow Rate FiO2 09/21/20 22:12 96 Room Air 09/21/20 21:18 98.6 77 18 131/79 (96) 98.6 EKG: EKG: [] Radiology/Procedures: Radiology/Procedures: [] Course & Med Decision Making: Course & Med Decision Making Pertinent Labs and Imaging studies reviewed. (See chart for details) This is a 70-year-old female patient presenting to the ED today with nausea and vomiting as well as chronic abdominal pain, symptoms began this morning. Also complaining of chronic left lower extremity sciatic leg pain. CBC with a WBC of 18.4, CMP with potassium of 3.2. Patient was given oral potassium replacement, urine negative for infection. Patient was also given IV fluids and nausea medicine, she states she feels much better right now and has to go home because she left her dog home alone. Discharge Zofran, instructed to push fluids, maintain good hand hygiene and follow-up with her own PCP next week Raheem Disclaimer: Raheem Disclaimer: This electronic medical record was generated, in whole or in part, using a voice recognition dictation system. Departure Departure Impression: Primary Impression: Abdominal pain Qualified Codes: R10.84 - Generalized abdominal pain Additional Impressions: Sciatica of left side Nausea and vomiting Qualified Codes: R11.2 - Nausea with vomiting, unspecified Hypokalemia Dehydration Disposition: HOME / SELF CARE / HOMELESS Condition: STABLE Referrals: ARISTIDES LOJA MD (PCP) Follow-up in 1 week Patient Instructions: Abdominal Pain, Dehydration, Adult, [id number], Hypokalemia-Brief, Nausea and Vomiting, [id number] Additional Instructions: You were evaluated in the emergency room and noted to be dehydrated. Your CT of your abdomen and pelvic is negative for any acute findings. We encourage you to push fluids, maintain good and hygiene, take Zofran as needed for nausea or vomiting. Please follow-up with your primary care doctor next week Scripts Ondansetron (ONDANSETRON ODT) 4 Mg Tab.rapdis 1 TAB PO PRN Q6-8HRS, #16 TAB Prov: SHANA PINEDA [employer] 09/21/20 SHANA PINEDA [employer] Sep 21, 2020 22:50
[2020-09-21] MEDS ORDERED: ONDA4TAB12 PO (22:55)
[2020-09-21] MEDS ORDERED: POTASSIUM CHLORIDE 20 MEQ TABLET.ER. PO ONE (23:00)
== END 2020-09-21 23:20 | disposition home or self-care (01) ==
LOC: ER 19:47
DX: R10.84 Generalized abdominal pain (principal); R11.2 Nausea with vomiting, unspecified; M54.32 Sciatica, left side; G89.29 Other chronic pain; E87.6 Hypokalemia; E86.0 Dehydration; E11.9 Type 2 diabetes mellitus without complications; E78.00 Pure hypercholesterolemia, unspecified; J45.909 Unspecified asthma, uncomplicated; I10 Essential (primary) hypertension; I25.2 Old myocardial infarction; Z87.891 Personal history of nicotine dependence; Z90.89 Acquired absence of other organs; Z90.710 Acquired absence of both cervix and uterus; Z98.51 Tubal ligation status; Z88.0 Allergy status to penicillin; Z88.1 Allergy status to other antibiotic agents; Z88.8 Allergy status to other drugs, medicaments and biological substances; Z91.041 Radiographic dye allergy status
CPT/HCPCS: 36415; 74176; 80053; 80307; 81001; 83690; 85007; 85025; 96361; 96374; 96375; 99285; G0480; J2270; J2405; J3490; J7030

== ENCOUNTER 2021-03-05 16:52 | Emergency (ER) | payer MEDICARE, OTHER ==
[~2021-03-05] VITALS: Ht 152.4 cm; Wt 67.3 kg
[~2021-03-05 16:52] MED LIST changes: -CLIN150C15 PO; +CLIN150C16 PO; +CYCL10TA19 PO; -CYCL10TA2 PO; +TIZA-75 PO; -TIZA4TAB2 PO
[2021-03-05] MEDS ORDERED: HYDROcodone/APAP 5/325MG 1 TAB TABLET PO ONE (19:15)
[2021-03-05] MEDS ORDERED: CYCLOBENZAPRINE 10 MG TABLET. PO ONE (19:15)
--- NOTE | 2021-03-05 19:22 | PHYS DOC ---
Past Medical History Past Medical History: Asthma, Diabetes-Type II, Diverticulitis, Fibromyalgia, High Cholesterol, Hypertension, DE, Sciatica, Other Additional Past Medical Histor: lower ext edema, chronic back pain Past Surgical History: Appendectomy, Hysterectomy, Knee Replacement, Tonsillectomy, Tubal ligation Additional Past Surgical Histo: HERNIA, COLON RESECTION X 2; L knee Smoking Status: Former Smoker Alcohol Use: Sober Drug Use: None General Adult EDM: Chief Complaint: BACK PAIN OR INJURY HPI: HPI: Patient is a 70 year old female with a history of diabetes type 2, hypertension, high cholesterol, back pain with sciatica, who presents the ED today complaining of moderate bilateral low back pain radiating to bilateral lower extremities, patient states symptoms are chronic but got worse today. She states she has to walk 3 floors to get her house and this made the pain worse. Patient denies any trauma. Denies any numbness or tingling to bilateral lower extremities, denies any loss of bowel/bladder function. Review of Systems: Review of Systems: Constitutional: Denies fever or chills. [] GI: Denies abdominal pain, nausea, vomiting, bloody stools or diarrhea. [] : Denies dysuria. [] Musculoskeletal: Reports low back pain radiating to bilateral lower extremities Integument: Denies rash. [] Neurologic: Denies headache, focal weakness or sensory changes. [] Psychiatric: Denies depression or anxiety. [] Heart Score: C/O Chest Pain: N/A Risk Factors: Risk Factors: DM, Current or recent (<one month) smoker, HTN, HLP, family hist ory of CAD, obesity. Risk Scores: Score 0 - 3: 2.5% MACE over next 6 weeks - Discharge Home Score 4 - 6: 20.3% MACE over next 6 weeks - Admit for Clinical Observation Score 7 - 10: 72.7% MACE over next 6 weeks - Early Invasive Strategies Current Medications: Current Medications Medications (Trade) Dose Ordered Sig/Dee Start Time Stop Time Status Last Admin Dose Admin Acetaminophen/ Hydrocodone Bitart (Lortab 5/325) 2 tab 1X ONCE 03/05/21 19:15 03/05/21 19:16 UNV Cyclobenzaprine HCl (Flexeril) 10 mg 1X ONCE 03/05/21 19:15 03/05/21 19:16 UNV Allergies: Allergies: Allergies Coded Allergies Type Severity Reaction Last Updated Verified Iodinated Contrast Media Allergy Intermediate rash, "face turned red and hot" 09/21/20 Yes Penicillins Allergy Intermediate Rash 11/18/13 Yes adhesive Allergy Intermediate RASH- TAPE 11/18/13 Yes doxycycline Allergy Intermediate rash 01/21/15 Yes Physical Exam: PE: Constitutional: Well developed, well nourished, no acute distress, non-toxic appearance. [] Abdomen: Bowel sounds normal, soft, no tenderness, no masses, no pulsatile masses. [] Skin: Warm, dry, no erythema, no rash. [] Back: Diffuse paraspinal muscle tenderness bilateral lumbar spine, no midline lumbar spine tenderness, no CVA tenderness. Unable to tolerate straight leg raises Extremities: No tenderness, no cyanosis, no clubbing, ROM intact, no edema. [] Neurologic: Alert and oriented X 3, normal motor function, normal sensory function, no focal deficits noted. [] Psychologic: Affect normal, judgement normal, mood normal. [] EKG: EKG: [] Radiology/Procedures: Radiology/Procedures: [] Course & Med Decision Making: Course & Med Decision Making Pertinent Labs and Imaging studies reviewed. (See chart for details) This is a 70-year-old female patient presenting to the ED today with exacerbation of chronic low back pain, no injuries, no cauda equina syndrome symptoms. She follows up with spine clinic. She is typically managed with pain medicine because they are not able to do surgery because her diabetes is not well controlled neither can she receive steroids injections to her back because it will make her diabetes worse. She was discharged with Flexerill. Follow-up with the PCP and spine clinic in a week Dragannalisa Disclaimer: Raheem Disclaimer: This electronic medical record was generated, in whole or in part, using a voice recognition dictation system. Departure Departure Impression: Primary Impression: Back pain Qualified Codes: M54.42 - Lumbago with sciatica, left side; M54.41 - Lumbago with sciatica, right side Disposition: HOME / SELF CARE / HOMELESS Condition: STABLE Referrals: TED SHELLEY MD (PCP) follow up with your primary care doctor and pain clinic Patient Instructions: Back Pain, Adult, Sciatica Additional Instructions: You were evaluated for chronic low back pain with sciatica. Please continue following up with the spine clinic at as well as your primary care doctor Scripts Cyclobenzaprine Hcl (CYCLOBENZAPRINE HCL) 10 Mg Tablet 1 TAB PO TID, #30 TAB Prov: SHANA PINEDA APRN 03/05/21 SHANA PINEDA APRN Mar 05, 2021 19:22
[2021-03-05] MEDS ORDERED: CYCL10TA19 PO (19:28)
[2021-03-05] MEDS ORDERED: HYDR-2763 PO (19:28)
[2021-03-05 19:38] VITALS: BP 125/61
== END 2021-03-05 19:50 | disposition home or self-care (01) ==
LOC: ER 16:52
DX: M54.41 Lumbago with sciatica, right side (principal); M54.42 Lumbago with sciatica, left side; G89.29 Other chronic pain; E11.9 Type 2 diabetes mellitus without complications; J45.909 Unspecified asthma, uncomplicated; E78.00 Pure hypercholesterolemia, unspecified; I10 Essential (primary) hypertension; I25.2 Old myocardial infarction; Z90.89 Acquired absence of other organs; Z90.710 Acquired absence of both cervix and uterus; Z98.51 Tubal ligation status; Z87.891 Personal history of nicotine dependence; Z88.0 Allergy status to penicillin; Z88.1 Allergy status to other antibiotic agents; Z88.8 Allergy status to other drugs, medicaments and biological substances
CPT/HCPCS: 99283

== ENCOUNTER → 2021-08-07 | Outpatient (CLI) | payer MEDICARE, OTHER ==
[~2021-08-07] MED LIST changes: -EMPA10TA PO; +EMPA10TA3 PO; +HYDR-2763 PO
--- NOTE | 2021-08-08 12:21 | RAD ---
Bilateral digital screening 2-D and 3-D (digital breast tomosynthesis) mammogram: Reason for examination: Routine screening. Comparison: Mammograms from 06/08/2020, 05/21/2019, 05/19/2018. Interpretation was made with the benefit of CAD. FINDINGS: Breast density: Category B. There are scattered areas of fibroglandular density. No suspicious breast mass, malignant appearing calcifications, or architectural distortion is seen. IMPRESSION: No evidence of malignancy. Assessment: BI-RADS 1. Negative. Recommendation: Routine screening mammograms. The patient will receive a letter with the results in the mail. Patient information will be entered i nto the mammography reminder system with a target recall date for the next mammogram. A reminder samra er will be generated. Electronically signed by: Ary Heck MD (08/07/2021 5:43 PM) [id number]
== END ==
LOC: MAMMO 13:48
PROVIDERS: ATTEND Pediatrics
DX: Z12.31 Encounter for screening mammogram for malignant neoplasm of breast (principal)
CPT/HCPCS: 77063; 77067